=== PATIENT | male | born 1950 | race Caucasian/White ===

== ENCOUNTER 2021-04-14 17:02 | Observation (INO) ==
--- NOTE | 2021-04-14 19:24 | Emergency Department Note ---
Impression & Plan Chest pain ED Provider Note NAME: LILLIAN KENNEY AGE: 70 SEX: M : 1950 ARRIVES VIA: Walk-In INFORMANT: Patient, ED PROVIDER(S): Rogelio Cazares MD Chief Complaint: Chest pain HPI: Patient does present with concern for chest pain describes as central occasionally right-sided with burning and radiation up toward the neck. The patient states it has been exertional initially beginning back in October but h as been increasingly persistent especially over the last week when doing any sort of exercise. Patient denies any nausea or vomiting. The patient tries to continue to exercise and see if it will go away. The patient was recently started on some methylprednisolone and states that he does have a cardiology appointment follow-up on Wednesday. Patient denies any fevers or chills. Patient denies any shortness of breath. No history of DVT or PE. The patient states that he has no current chest pain at this time. Patient denies any prior history of CAD. The patient does state that he has a brother who in his 30s from a heart attack but states that he was overweight and a heavy smoker and not very healthy. ROS: See HPI for pertinent positives and negatives. A total of 10 systems were re viewed and otherwise negative. Past medical history: See below Surgical history: See below Social history: See below Physical Exam: GENERAL: Wearing glasses and a mask. NAD, non-toxic. EYE EXAM: Normal conjunctiva. PERRL, no anisocoria and EOM's grossly intact w/o pain. NECK: Supple, no nuchal rigidity, no adenopathy, non-tender. No signs of meningismus. LUNGS: Clear to auscultation. Normal chest wall mechanics. HEART: NSR, no MRG. ABDOMEN: Abdomen soft, non-tender, normo-active bowel sounds, no masses, no rebound or guarding. BACK: No CVA TTP. SKIN: No rashes and no bruising. UPPER EXTREMITIES: Upper extremities are grossly normal. LOWER EXTREMITIES: Grossly normal, no edema. Negative Homans' sign bilaterally. NEURO EXAM: A&O x3, cranial nerves II-XII grossly intact, normal speech, moves all 4 extremities on command w/o issue. Differential diagnoses: Cardiac ischemia, aortic dissection, pulmonary embolism, pneumothorax, pneumonia, pericarditis, myocarditis, esophageal rupture, GERD, cholecystitis, pancreatitis, musculoskeletal, as well as other pathologies. Course: Patient was seen and evaluated the bedside. Full history physical exam was performed. EKG interpreted by me Sinus bradycardia with first-degree AV block, rate 55, prolonged WI, normal QRS, normal axis, slight downsloping in the lateral leads. Imaging Studies: See below Cardiac monitoring: An order was placed for continuous cardiac monitoring. The monitor shows a rate of 55 with regular rhythm. MDM: Patient was seen due to concern for chest pain. I am concerned about anginal related cardiac chest pain. The patient did have blood work completed along with an EKG. Patient does not meet acute STEMI criteria. Given the patient's history believe the patient would benefit from continued observation and treatment. The patient was given full dose aspirin and nitro. The patient was admitted to the medicine service by Dr. Yuen. Past Med/Surg History Medical History Diverticulosis NSAID induced gastritis SOB (shortness of breath) on exertion Tubular adenoma of colon Surgical History H/O colonoscopy (~2014) S/P arthroscopy of knee Status post tonsillectomy and adenoidectomy Family History Other Leukemia Social History Smoking Status: Never smoker Hx Alcohol Use: Yes marital status: Current Living Situation: Spouse current occupational status: employed Feels Safe at Home: Yes Allergies Allergies Allergy/AdvReac Type Severity Reaction Status Date / Time No Known Allergies Allergy Unverified 04/14/21 20:38 Home Meds Home Medications Medication Instructions Recorded Confirmed methylprednisolone [Medrol (Hermes)] 4 mg PO .DAILY/UD 04/14/21 04/14/21 penicillin V potassium 500 mg PO Q6H 04/14/21 04/14/21 Results & Data (ED) Vital Signs Vital Signs - 24 hr 04/14/21 17:03 04/14/21 19:01 04/14/21 19:52 Temperature 36.4 C L Temperature Source Temporal Artery Scan Pulse Rate 72 55 L Pulse Rate [Left Finger] 60 Pulse Rhythm [Left Finger] Regular Respiratory Rate 20 14 14 Respiratory Effort / Characteristics Non-Labored Non-Labored Respiratory Depth Normal Normal Blood Pressure 172/111 H 162/103 H Blood Pressure [Left Arm] 144/95 H Blood Pressure Mean 131 122 Blood Pressure Mean [Left Arm] 111 Pulse Oximetry 98 98 Oxygen Delivery Method Room Air Room Air Sepsis Recent Fever Within 48 Hours No Sepsis New/Unexplained Change in Mental Status N/A Sepsis Action Taken by Nursing No Action Required 04/14/21 19:55 04/14/21 20:00 04/14/21 20:30 Temperature Temperature Source Pulse Rate 63 52 L Pulse Rate [Left Finger] Pulse Rhythm [Left Finger] Respiratory Rate 12 12 Respiratory Effort / Characteristics Respiratory Depth Blood Pressure 146/90 H 141/71 H Blood Pressure [Left Arm] Blood Pressure Mean 108 94 Blood Pressure Mean [Left Arm] Pulse Oximetry Oxygen Delivery Method Room Air Sepsis Recent Fever Within 48 Hours Sepsis New/Unexplained Change in Mental Status Sepsis Action Taken by Long Term Medications Current Medication List: was personally reviewed by me Laboratory Data Attestation: I reviewed the patient's lab results. Result diagrams: 04/14/21 18:53 04/14/21 18:53 Lab Results 04/14/21 04/14/21 04/14/21 Range/Units 18:53 18:53 18:53 WBC 6.08 (4.8-10.8) K/uL RBC 4.84 (4.7-6.1) M/uL Hgb 16.0 (14.0-18.0) g/dL Hct 46.6 (42-52) % MCV 96.3 (80-100) fL MCH 33.1 (25-34) pg MCHC 34.3 (32-36) g/dL RDW Std Deviation 44.1 (36.4-46.3) fL RDW Coeff of Henrique 12.6 (11.5-14.5) % Plt Count 206 (130-400) K/uL MPV 9.0 (7.4-10.4) fL Immature Gran % (Auto) 0.3 % Neut % (Auto) 62.5 % Lymph % (Auto) 27.3 % [place] % (Auto) 8.9 % Eos % (Auto) 0.7 % Baso % (Auto) 0.3 % Neut # (Auto) 3.80 (1.4-6.5) K/uL Lymph # (Auto) 1.66 (1.2-3.4) K/uL [place] # (Auto) 0.54 (0.11-0.59) K/uL Eos # (Auto) 0.04 (0-0.5) K/uL Baso # (Auto) 0.02 (0-0.2) K/uL Immature Gran # (Auto) 0.02 (0.00-0.02) K/uL APTT 24.9 (21.0-31.0) Seconds PTT Ratio 0.9 Sodium 138 (136-145) mmol/L Potassium 4.8 (3.5-5.1) mmol/L Chloride 104 (98-107) mmol/L Carbon Dioxide 30 (21-32) mmol/L Anion Gap 3.0 (3-11) BUN 19 H (7-18) mg/dl Creatinine 0.92 (0.6-1.4) mg/dl Est Cr Clr Drug Dosing 106.8 ml/min Est GFR ( Amer) 98.7 ml/min Est GFR (Non-Af Amer) 85.2 ml/min BUN/Creatinine Ratio 20.6 H (10-20) Glucose 138 H (70-99) mg/dl Calcium 9.3 (8.5-10.1) mg/dl Total Bilirubin 0.6 (0.2-1) mg/dl AST 12 L (15-37) U/L ALT 15 (12-78) U/L Alkaline Phosphatase 97 (45-117) U/L Troponin I < 0.015 (0-0.045) ng/ml Total Protein 7.4 (6.4-8.2) gm/dl Albumin 3.9 (3.4-5.0) gm/dl Globulin 3.5 (2.5-4.0) gm/dl Albumin/Globulin Ratio 1.1 (0.9-2) Lipase 90 (73-393) U/L COVID-19 Eval Order SARS-CoV-2 (PCR) (Negative) 04/14/21 04/14/21 Range/Units 21:20 21:20 WBC (4.8-10.8) K/uL RBC (4.7-6.1) M/uL Hgb (14.0-18.0) g/dL Hct (42-52) % MCV (80-100) fL MCH (25-34) pg MCHC (32-36) g/dL RDW Std Deviation (36.4-46.3) fL RDW Coeff of Henrique (11.5-14.5) % Plt Count (130-400) K/uL MPV (7.4-10.4) fL Immature Gran % (Auto) % Neut % (Auto) % Lymph % (Auto) % [place] % (Auto) % Eos % (Auto) % Baso % (Auto) % Neut # (Auto) (1.4-6.5) K/uL Lymph # (Auto) (1.2-3.4) K/uL [place] # (Auto) (0.11-0.59) K/uL Eos # (Auto) (0-0.5) K/uL Baso # (Auto) (0-0.2) K/uL Immature Gran # (Auto) (0.00-0.02) K/uL APTT (21.0-31.0) Seconds PTT Ratio Sodium (136-145) mmol/L Potassium (3.5-5.1) mmol/L Chloride (98-107) mmol/L Carbon Dioxide (21-32) mmol/L Anion Gap (3-11) BUN (7-18) mg/dl Creatinine (0.6-1.4) mg/dl Est Cr Clr Drug Dosing ml/min Est GFR ( Amer) ml/min Est GFR (Non-Af Amer) ml/min BUN/Creatinine Ratio (10-20) Glucose (70-99) mg/dl Calcium (8.5-10.1) mg/dl Total Bilirubin (0.2-1) mg/dl AST (15-37) U/L ALT (12-78) U/L Alkaline Phosphatase (45-117) U/L Troponin I (0-0.045) ng/ml Total Protein (6.4-8.2) gm/dl Albumin (3.4-5.0) gm/dl Globulin (2.5-4.0) gm/dl Albumin/Globulin Ratio (0.9-2) Lipase (73-393) U/L COVID-19 Eval Order Covid19 at [facility] SARS-CoV-2 (PCR) NEGATIVE (Negative) Administered Medications Discontinued Medications Acetaminophen (Acetaminophen 325 Mg Tab) 650 mg PO NOW STA Stop: 04/14/21 19:39 Last Admin: 04/14/21 19:56 Dose: Not Given Documented by: [id number] Aspirin (Aspirin Chew 324 Mg) 324 mg PO NOW STA Stop: 04/14/21 19:39 Last Admin: 04/14/21 19:53 Dose: 324 mg Documented by: [id number] Nitroglycerin (Nitroglycerin Sl 0.4 Mg/Tab Tab) 0.4 mg SL NOW STA Stop: 04/14/21 19:39 Last Admin: 04/14/21 19:53 Dose: 0.4 mg Documented by: [id number] Imaging Data Radiologist's Impression: Chest X-Ray 04/14/21 18:50 XR chest 1V portable CLINICAL HISTORY: Chest Pain COMPARISON STUDY: Chest radiograph April 09, 2021. FINDINGS: Lung volumes are normal. Lungs are clear. There is no pneumothorax or pleural effusion. Cardiac size is normal. Mediastinal contours are normal. There is no evidence for pulmonary edema. IMPRESSION: No acute cardiopulmonary findings. ACT 112: Negative or not required by law. Electronically signed by: Gerard Schultz M.D. 04/14/2021 7:59 PM Discharge Plan Visit Data Chief Complaint: Chest Pain Stated Complaint: CHEST PAIN, PRESSURE AND BURNING IN CHEST ED Provider: Rogelio Cazares Discharge Problem: Chest pain Forms Stand Alone Forms: [facility] SocialFlow Prescriptions Prescriptions: No Action methylprednisolone [Medrol (Hermes)] 4 mg tablets,dose pack 4 mg PO .DAILY/UD RF: 0 penicillin V potassium 500 mg tablet 500 mg PO Q6H RF: 0 Discharge Problem: Chest pain Qualifiers: Chest pain type: unspecified Qualified Code(s): R07.9 - Chest pain, unspecified
[2021-04-14 19:27] LABS: Basophils # (auto) 0.02 K/uL (0-0.2); Basophils % (auto) 0.3 %; Eosinophils # (auto) 0.04 K/uL (0-0.5); Eosinophils % (auto) 0.7 %; Hematocrit (blood only) 46.6 % (42-52); Immature Granulocytes # (auto) 0.02 K/uL (0.00-0.02); Immature Granulocytes % (auto) 0.3 %; Lymphocytes # (auto) 1.66 K/uL (1.2-3.4); Lymphocytes % (auto) 27.3 %; Mean Corpuscular Hemoglobin 33.1 pg (25-34); Mean Corpuscular Hgb Conc 34.3 g/dL (32-36); Mean Corpuscular Volume 96.3 fL (80-100); Monocytes # (auto) 0.54 K/uL (0.11-0.59); Monocytes % (auto) 8.9 %; Neutrophils % (auto) 62.5 %; Platelet Count 206 K/uL (130-400); RDW Coefficient of Variation 12.6 % (11.5-14.5); RDW Standard Deviation 44.1 fL (36.4-46.3); Red Blood Count 4.84 M/uL (4.7-6.1); White Blood Count 6.08 K/uL (4.8-10.8)
[2021-04-14] MEDS ORDERED: ACETAMINOPHEN 325 MG TAB PO STA (19:38)
[2021-04-14] MEDS ORDERED: ASPIRIN CHEW 324 MG PO STA (19:38)
[2021-04-14] MEDS ORDERED: NITROGLYCERIN SL 0.4 MG/TAB TAB SL STA (19:38)
[2021-04-14 19:45] LABS: Alanine Aminotransferase 15 U/L (12-78); Albumin Level 3.9 gm/dl (3.4-5.0); Aspartate Aminotransferase 12 U/L (15-37); BUN Creatinine Ratio 20.6 (10-20); Blood Urea Nitrogen 19 mg/dl (7-18); Calcium 9.3 mg/dl (8.5-10.1); Carbon Dioxide 30 mmol/L (21-32); Chloride 104 mmol/L (98-107); Creatinine Clr Calc Pharmacy 106.8 ml/min; Est GFR (African American) 98.7 ml/min; Est GFR (Non-African American) 85.2 ml/min; Glucose 138 mg/dl (70-99); Lipase 90 U/L (73-393); Potassium 4.8 mmol/L (3.5-5.1); Sodium 138 mmol/L (136-145)
[2021-04-14 19:50] LABS: Albumin Globulin Ratio 1.1 (0.9-2); Alkaline Phosphatase 97 U/L (45-117); Bilirubin,Total 0.6 mg/dl (0.2-1); Globulin 3.5 gm/dl (2.5-4.0); Total Protein 7.4 gm/dl (6.4-8.2); Troponin I < 0.015 ng/ml (0-0.045)
--- NOTE | 2021-04-14 20:01 | XRay Report ---
XR chest 1V portable CLINICAL HISTORY: Chest Pain COMPARISON STUDY: Chest radiograph April 09, 2021. FINDINGS: Lung volumes are normal. Lungs are clear. There is no pneumothorax or pleural effusion. Car diac size is normal. Mediastinal contours are normal. There is no evidence for pulmonary edema. IMPRESSION: No acute cardiopulmonary findings. ACT 112: Negative or not required by law. Electronically signed by: Gerard Schultz M.D. 04/14/2021 7:59 PM
--- NOTE | 2021-04-14 21:41 | History & Physical Report ---
Date of Service April 14, 2021 Assessment & Plan (1) Exertional chest pain: Exertional chest pain- The patient will be admitted to telemetry for serial cardiac enzymes, serial EKG's, cardiac rhythm monitoring and a 2-D echocardiogram with Dopplers. Symptoms are suggestive of possible unstable angina Start on aspirin 81 mg every morning Will need a stress echocardiogram prior to discharge Present on Admission?: Yes (2) Degenerative arthritis of cervical spine: Cervical degenerative disc disease/upper extremity dysesthesias- Presently is waiting for return call from orthopedic surgery for follow-up appo intment Present on Admission?: Yes (3) Upper extremity neuropathy: See above Present on Admission?: Yes (4) Dental infection: Dental infection right lower mandible/failure of outpatient treatment- Hold penicillin VK Ceftriaxone 1 g IV this evening Due for last dose of methylprednisolone 4 mg p.o. tonight from tapering course Present on Admission?: Yes (5) Dyslipidemia: Check a fasting lipid panel Present on Admission?: Yes (6) Esophageal reflux: GERD/NSAID induced gastritis- No specific symptoms at this time Will place on aspirin 81mg qam Present on Admission?: Yes History of Present Illness Chief Complaint: The patient presents to the emergency department with complaint of substernal chest discomfort radiating up to his neck that occurs with exertional activities such as riding a bike Primary Care Provider: Yosi Mir MD The patient is a 62-year-old male with a past medical history of cervical degenerative disc disease, allergic rhinitis, GERD, dyslipidemia, horseshoe kidney and osteoarthritis of knee. Initially noted the above symptoms in [facility] when going for bike rides, and was out in the cold temperatures have been 20 to 30 F range. He had gradually gotten to that, but on April 02 had recurrence of symptoms while doing physical activity, and has continued to have recurrence of symptoms with less and less physical activity. He also complains of bilateral upper extremity numbness extending into hands, on left greater than right. He is undergone the beginnings of a work-up in the outpatient setting, and is waiting for a call from orthopedic surgery for an appointment. Allergies Allergy/AdvReac Type Severity Reaction Status Date / Time No Known Allergies Allergy Unverified 04/14/21 20:38 Home Medications Medication Instructions Recorded Confirmed Type methylprednisolone [Medrol (Hermes)] 4 mg PO .DAILY/UD 04/14/21 04/14/21 History penicillin V potassium 500 mg PO Q6H 04/14/21 04/14/21 History Past Med/Surg History Medical History Diverticulosis NSAID induced gastritis SOB (shortness of breath) on exertion Tubular adenoma of colon Surgical History H/O colonoscopy (~2014) S/P arthroscopy of knee Status post tonsillectomy and adenoidectomy Family History Other Leukemia Social History Smoking Status: Never smoker Hx Alcohol Use: Yes marital status: Current Living Situation: Spouse current occupational status: employed Feels Safe at Home: Yes Review of Systems Review of Systems: The patient denies palpitations, shortness of breath, dyspnea on exertion, cough, lower extremity swelling, sore throat, fevers, chills, sweats, weight change, fatigue, nausea, vomiting, diarrhea , constipation, abdominal pain, pelvic pain, blood in urine or stool, dysuria, urinary frequency or urgency, lightheadedness, dizziness, headache, memory loss, loss of consciousness, rash, abnormal bruising or bleeding, imbalance, focal or generalized weakness, numbness or tingling in legs, generalized arthralgias or myalgias, back pain, or night sweats. The review of systems is otherwise negative other than for that already noted above, and at least 10 systems have been reviewed. Physical Exam Physical Exam: The patient is awake, alert and oriented 3, well developed and well nourished, normocephalic and atraumatic, lying in bed and in no acute distress. HEENT--PERRL, EOMI, mucous membranes and oropharynx normal Neck--supple. No JVD. No bruits. Thyroid normal, trachea midline, no adenopathy. Heart--normal S1 and S2. No murmurs, rubs or gallops. Lungs--clear bilaterally, no respiratory distress, no accessory muscle use. Abdomen--normal bowel sounds and soft. Nontender. Nondistended, no hernias or masses, no organomegaly. Extremities--no cyanosis or clubbing. No edema. Dermatologic--normal skin turgor, normal color, no abnormal lymph nodes, no rash. Neurologic--cranial nerves II through XII grossly intact. Rheumatologic--normal range of motion. Psychiatric--normal affect. Results & Data Results & Data ([facility]) Vital Signs (Past 12 Hours) Vital Signs Temp Pulse Pulse Resp BP BP Pulse Ox 04/14/21 20:30 52 L 12 141/71 H 04/14/21 20:00 63 12 146/90 H 04/14/21 19:52 55 L 14 162/103 H 04/14/21 19:01 60 14 144/95 H 98 04/14/21 17:03 97.5 F L 72 20 172/111 H 98 Laboratory Results Laboratory Results WBC 6.08 K/uL (4.8-10.8) 04/14/21 18:53 RBC 4.84 M/uL (4.7-6.1) 04/14/21 18:53 Hgb 16.0 g/dL (14.0-18.0) 04/14/21 18:53 Hct 46.6 % (42-52) 04/14/21 18:53 MCV 96.3 fL (80-100) 04/14/21 18:53 MCH 33.1 pg (25-34) 04/14/21 18:53 MCHC 34.3 g/dL (32-36) 04/14/21 18:53 RDW Std Deviation 44.1 fL (36.4-46.3) 04/14/21 18:53 RDW Coeff of Henrique 12.6 % (11.5-14.5) 04/14/21 18:53 Plt Count 206 K/uL (130-400) 04/14/21 18:53 MPV 9.0 fL (7.4-10.4) 04/14/21 18:53 Immature Gran % (Auto) 0.3 % 04/14/21 18:53 Neut % (Auto) 62.5 % 04/14/21 18:53 Lymph % (Auto) 27.3 % 04/14/21 18:53 [place] % (Auto) 8.9 % 04/14/21 18:53 Eos % (Auto) 0.7 % 04/14/21 18:53 Baso % (Auto) 0.3 % 04/14/21 18:53 Neut # (Auto) 3.80 K/uL (1.4-6.5) 04/14/21 18:53 Lymph # (Auto) 1.66 K/uL (1.2-3.4) 04/14/21 18:53 [place] # (Auto) 0.54 K/uL (0.11-0.59) 04/14/21 18:53 Eos # (Auto) 0.04 K/uL (0-0.5) 04/14/21 18:53 Baso # (Auto) 0.02 K/uL (0-0.2) 04/14/21 18:53 Immature Gran # (Auto) 0.02 K/uL (0.00-0.02) 04/14/21 18:53 Sodium 138 mmol/L (136-145) 04/14/21 18:53 Potassium 4.8 mmol/L (3.5-5.1) 04/14/21 18:53 Chloride 104 mmol/L (98-107) 04/14/21 18:53 Carbon Dioxide 30 mmol/L (21-32) 04/14/21 18:53 Anion Gap 3.0 (3-11) 04/14/21 18:53 BUN 19 mg/dl (7-18) H 04/14/21 18:53 Creatinine 0.92 mg/dl (0.6-1.4) 04/14/21 18:53 Est Cr Clr Drug Dosing 106.8 ml/min 04/14/21 18:53 Est GFR ( Amer) 98.7 ml/min 04/14/21 18:53 Est GFR (Non-Af Amer) 85.2 ml/min 04/14/21 18:53 BUN/Creatinine Ratio 20.6 (10-20) H 04/14/21 18:53 Glucose 138 mg/dl (70-99) H 04/14/21 18:53 Calcium 9.3 mg/dl (8.5-10.1) 04/14/21 18:53 Total Bilirubin 0.6 mg/dl (0.2-1) 04/14/21 18:53 AST 12 U/L (15-37) L 04/14/21 18:53 ALT 15 U/L (12-78) 04/14/21 18:53 Alkaline Phosphatase 97 U/L (45-117) 04/14/21 18:53 Troponin I < 0.015 ng/ml (0-0.045) 04/14/21 18:53 Total Protein 7.4 gm/dl (6.4-8.2) 04/14/21 18:53 Albumin 3.9 gm/dl (3.4-5.0) 04/14/21 18:53 Globulin 3.5 gm/dl (2.5-4.0) 04/14/21 18:53 Albumin/Globulin Ratio 1.1 (0.9-2) 04/14/21 18:53 Lipase 90 U/L (73-393) 04/14/21 18:53 COVID-19 Eval Order Covid19 at [facility] 04/14/21 21:20 Impressions Chest X-Ray 04/14/21 18:50 XR chest 1V portable CLINICAL HISTORY: Chest Pain COMPARISON STUDY: Chest radiograph April 09, 2021. FINDINGS: Lung volumes are normal. Lungs are clear. There is no pneumothorax or pleural effusion. Cardiac size is normal. Mediastinal contours are normal. There is no evidence for pulmonary edema. IMPRESSION: No acute cardiopulmonary findings. ACT 112: Negative or not required by law. Electronically signed by: Gerard Schultz M.D. 04/14/2021 7:59 PM Code Status & VTE Plan Code Status Full code VTE Prophylaxis Plan VTE Prophylaxis will be ordered: Yes PG Care Time/CCT Total # of Minutes Spent Total Time Spent with Patient: Total time spent is greater than 50% in coordination of care (as documented) at patient's floor/unit and/or counseling patient: Coding Level of Care Code INT OBSERVATION CARE 70M LVL 3 Diagnoses Exertional chest pain R07.9 Degenerative arthritis of cervical spine M47.812 Upper extremity neuropathy G56.90 Dental infection K04.7 Dyslipidemia E78.5 Esophageal reflux K21.9
[2021-04-14] MEDS ORDERED: methylPREDNISolone 4 MG TAB PO ONE (21:42)
[2021-04-14 22:50] LABS: Partial Thromboplastin Ratio 0.9; Partial Thromboplastin Time 24.9 Seconds (21.0-31.0)
[2021-04-14] MEDS: cefTRIAXone SODIUM 2,000 MG in DEXTROSE 5% 50 ML IV SCH (23:32)
[2021-04-15] MEDS ORDERED: ACETAMINOPHEN 325 MG TAB PO PRN (00:47)
[2021-04-15] MEDS ORDERED: ONDANSETRON INJ 2 MG/ML 2 ML VIAL IV PRN (00:47)
[2021-04-15 08:08] LABS: Basophils # (auto) 0.02 K/uL (0-0.2); Basophils % (auto) 0.4 %; Eosinophils # (auto) 0.07 K/uL (0-0.5); Eosinophils % (auto) 1.5 %; Hematocrit (blood only) 46.7 % (42-52); Immature Granulocytes # (auto) 0.01 K/uL (0.00-0.02); Immature Granulocytes % (auto) 0.2 %; Lymphocytes # (auto) 1.68 K/uL (1.2-3.4); Lymphocytes % (auto) 35.1 %; Mean Corpuscular Hemoglobin 32.7 pg (25-34); Mean Corpuscular Hgb Conc 34.3 g/dL (32-36); Mean Corpuscular Volume 95.3 fL (80-100); Mean Platelet Volume 8.7 fL (7.4-10.4); Monocytes # (auto) 0.57 K/uL (0.11-0.59); Monocytes % (auto) 11.9 %; Neutrophils # (auto) 2.43 K/uL (1.4-6.5); Neutrophils % (auto) 50.9 %; Platelet Count 195 K/uL (130-400); RDW Coefficient of Variation 12.6 % (11.5-14.5); RDW Standard Deviation 43.8 fL (36.4-46.3); White Blood Count 4.78 K/uL (4.8-10.8)
[2021-04-15 08:18] LABS: Partial Thromboplastin Time 25.9 Seconds (21.0-31.0); Prothrombin Time 10.3 Seconds (9.0-12.0)
--- NOTE | 2021-04-15 08:29 | Hospitalist Progress Note ---
Date of Service April 15, 2021 Assessment & Plan (1) Exertional chest pain: Exertional chest pain- Pt had negative troponin x3, had abnormal stress test and taken to [employer] [employer] Successful PCI of proximal first diagonal with single drug-eluting stent (3.0 x 18 mm Neno). Recommendations: Loaded with clopidogrel 600 mg in [employer] Continue dual-antiplatelet therapy for at least 1 year cardiology is chosen Brilinta Continue statin, and ASCVD risk factor modification Consult cardiac Rehab (2) Degenerative arthritis of cervical spine: Cervical degenerative disc disease/upper extremity dysesthesias- Presently is waiting for return call from orthopedic surgery for follow-up appointment (3) Upper extremity neuropathy: See above (4) Dental infection: Dental infection right lower mandible/failure of outpatient treatment- Hold penicillin VK Ceftriaxone 1 g IV this evening Due for last dose of methylprednisolone 4 mg p.o. tonight from tapering course (5) Dyslipidemia: Check a fasting lipid panel (6) Esophageal reflux: GERD/NSAID induced gastritis- No specific symptoms at this time Will place on aspirin 81mg qam Admission and Anticipated Discharge Date Admission Date: April 14, 2021 Subjective pt was seen post cath, no further chest pain, still some dental pain Review of Systems Review of Systems: Mild distress and fatigue no headache, no visual changes no speech or swallowing issues This pain since resolved no shortness of breath, cough or wheezes no abdominal pain, nausea or vomiting, diarrhea or constipation no dysuria, hematuria or frequency no focal joint pain or swelling no back pain, CVA tenderness or radicular pain no bruising, bleeding or rashes no focal signs of weakness or numbness or altered sensation no complaints of anxiety or depression.. Physical Exam Physical Exam: The patient appeared well nourished and normally developed. Vital signs as documented. Head exam is normocephalic atraumatic Neck is without JVD, thyromegaly, or carotid bruits. Lungs are clear to auscultation, no focal loss of breath sounds Cardiac exam, Rhythm is regular.. No murmurs, rubs or gallops. Abdominal exam reveals normal bowel sounds, soft non tender, no masses Right wrist the bandage in place Neurologic exam is alert and oriented, no focal loss of strength or sensation Skin is without bruises or rashes Psychologically is without concerns for anxiety or depression Results & Data Results & Data ([facility]) Vital Signs (Past 12 Hours) Vital Signs Temp Pulse Pulse Resp BP BP Pulse Ox 04/15/21 07:23 97.7 F 63 19 133/76 96 04/15/21 03:47 97.7 F 53 L 18 151/89 H 97 04/15/21 00:58 61 04/15/21 00:49 98.1 F 60 14 155/78 H 99 04/15/21 00:47 04/14/21 23:30 65 22 151/92 H 04/14/21 23:00 56 L 18 137/85 04/14/21 20:30 52 L 12 141/71 H Pulse Ox 04/15/21 07:23 04/15/21 03:47 04/15/21 00:58 04/15/21 00:49 04/15/21 00:47 99 04/14/21 23:30 04/14/21 23:00 04/14/21 20:30 PG Care Time/CCT Total # of Minutes Spent Total Time Spent with Patient: Total time spent is greater than 50% in coordination of care (as documented) at patient's floor/unit and/or counseling patient: Coding Level of Care Code 80156 Subseq Hosp Care Lvl 3 Diagnoses Exertional chest pain R07.9 Degenerative arthritis of cervical spine M47.812 Upper extremity neuropathy G56.90 Dental infection K04.7 Dyslipidemia E78.5 Esophageal reflux K21.9
[2021-04-15 08:42] LABS: Albumin Globulin Ratio 1.2 (0.9-2); Albumin Level 3.8 gm/dl (3.4-5.0); BUN Creatinine Ratio 19.7 (10-20); Bilirubin,Total 0.7 mg/dl (0.2-1); Calcium 8.8 mg/dl (8.5-10.1); Creatinine Clr Calc Pharmacy 129.3 ml/min; Est GFR (African American) 108.7 ml/min; Est GFR (Non-African American) 93.7 ml/min; Globulin 3.3 gm/dl (2.5-4.0); Magnesium 2.4 mg/dl (1.8-2.4); Potassium 3.9 mmol/L (3.5-5.1); Total Protein 7.1 gm/dl (6.4-8.2)
[2021-04-15] MEDS: ASPIRIN 81 MG ECTAB PO SCH (09:06)
--- NOTE | 2021-04-15 12:35 | XCELERA ---
[id number]
--- NOTE | 2021-04-15 13:45 | Cardiology Consultation ---
Date of Consultation April 15, 2021 Assessment & Plan (1) Exertional chest pain: Patient symptoms are consistent with exertional angina. His symptoms seem to have started approximately 2 weeks ago. Based on the relatively recent development of symptoms and persistent nature this could be considered unstable angina. No rest symptoms however. His echocardiogram was notably abnormal and suggestive of an LAD lesion. I did discuss the options for evaluation and management with the patient. This included medical management or an invasive evaluation. I did recommend an invasive evaluation based on the progressive nature of his symptoms. We did discuss the risks of an invasive evaluation and he was agreeable to proceeding. (2) Mitral regurgitation: Mild to moderate on echocardiogram. This can be monitored over time. (3) Aortic root dilation: 4.4 cm on his echocardiogram. He is a large individual and this indexed to his size may simply be borderline. This can be imaged more definitively at a later time. History of Present Illness Reason for Consultation: Exertional chest pain Requesting Physician: Perico Attending Physician: Filiberto River MD History of Present Illness The patient is a 70-year-old gentleman with no known history of cardiac disease who has been experiencing symptoms of exertional chest discomfort. Patient states that in general he is a very active individual who exercises vigorously on a regular basis. Around April 03 he began to notice some symptoms associated with activity. This was described as a "burning" sensation in the precordium which generally became worse with activity and resolved with rest. On one occasion he was able to continue activity with some improvement in his symptoms. Based on the persistent nature of his symptoms and inability to exercise he presented to the emergency room for an evaluation. The patient did not describe symptoms at rest. As noted previously he is an otherwise active individual who is not generally bothered by dizziness, lightheadedness, exertional dyspnea or syncope. Allergies Allergy/AdvReac Type Severity Reaction Status Date / Time No Known Allergies Allergy Unverified 04/14/21 20:38 Home Medications Medication Instructions Recorded Confirmed Type methylprednisolone [Medrol (Hermes)] 4 mg PO .DAILY/UD 04/14/21 04/14/21 History penicillin V potassium 500 mg PO Q6H 04/14/21 04/14/21 History Patient History Medical History Diverticulosis NSAID induced gastritis SOB (shortness of breath) on exertion Tubular adenoma of colon Surgical History H/O colonoscopy (~2014) S/P arthroscopy of knee Status post tonsillectomy and adenoidectomy Family History Other Leukemia Social History Smoking Status: Never smoker Hx Alcohol Use: Yes Alcohol type: beer and wine Hx Substance Use: No Preferred Language: Telugu Communication Ability: Effective 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 Symptoms generally resolved with discontinuation of activity. Physical Exam Physical Exam: The patient is alert and oriented. Mood and affect appeared normal. He answered all questions appropriately. HEENT: Pupils are equal and reactive to light and accommodation. Extraocular movements are intact. The sclerae are anicteric. Neuro: Cranial nerves intact Neck: Patient's neck is supple. He has palpable carotid pulses bilaterally without bruits on auscultation. There is no evidence of jugular venous distention. The thyroid is not enlarged. Lungs: Clear to auscultation bilaterally. He has good air movement without use of accessory muscles. No rales wheezes or rhonchi. Cardiac: Heart demonstrates a regular rate and rhythm. Normal S1 and S2. No murmurs on examination. Pulses: The patient has palpable radial pulses bilaterally that are equal in intensity Extremities: There was no evidence of hypoperfusion. There is no cyanosis or clubbing. There is no edema. Skin: I did not appreciate any rashes on examination today. Results & Data ([facility]) Vital Signs (Past 12 Hours) Vital Signs Temp Pulse Resp BP Pulse Ox 04/15/21 11:29 36.9 C 68 20 134/83 98 04/15/21 07:23 36.5 C 63 19 133/76 96 04/15/21 03:47 36.5 C 53 L 18 151/89 H 97 Laboratory Results Abnormal Lab Results 04/14/21 04/14/21 04/14/21 18:53 18:53 18:53 WBC 6.08 RBC 4.84 Hgb 16.0 Hct 46.6 MCV 96.3 MCH 33.1 MCHC 34.3 RDW Std Deviation 44.1 RDW Coeff of Henrique 12.6 Plt Count 206 MPV 9.0 Immature Gran % (Auto) 0.3 Neut % (Auto) 62.5 Lymph % (Auto) 27.3 Rowan % (Auto) 8.9 Eos % (Auto) 0.7 Baso % (Auto) 0.3 Neut # (Auto) 3.80 Lymph # (Auto) 1.66 Rowan # (Auto) 0.54 Eos # (Auto) 0.04 Baso # (Auto) 0.02 Immature Gran # (Auto) 0.02 PT INR APTT 24.9 PTT Ratio 0.9 Sodium 138 Potassium 4.8 Chloride 104 Carbon Dioxide 30 Anion Gap 3.0 BUN 19 H Creatinine 0.92 Est Cr Clr Drug Dosing 106.8 Est GFR ( Amer) 98.7 Est GFR (Non-Af Amer) 85.2 BUN/Creatinine Ratio 20.6 H Glucose 138 H Calcium 9.3 Magnesium Total Bilirubin 0.6 AST 12 L ALT 15 Alkaline Phosphatase 97 Troponin I < 0.015 Total Protein 7.4 Albumin 3.9 Globulin 3.5 Albumin/Globulin Ratio 1.1 Lipase 90 COVID-19 Eval Order SARS-CoV-2 (PCR) Hepatitis C Ab Screen 04/14/21 04/14/21 04/15/21 21:20 21:20 01:09 WBC RBC Hgb Hct MCV MCH MCHC RDW Std Deviation RDW Coeff of Henrique Plt Count MPV Immature Gran % (Auto) Neut % (Auto) Lymph % (Auto) Rowan % (Auto) Eos % (Auto) Baso % (Auto) Neut # (Auto) Lymph # (Auto) Rowan # (Auto) Eos # (Auto) Baso # (Auto) Immature Gran # (Auto) PT INR APTT PTT Ratio Sodium Potassium Chloride Carbon Dioxide Anion Gap BUN Creatinine Est Cr Clr Drug Dosing Est GFR ( Amer) Est GFR (Non-Af Amer) BUN/Creatinine Ratio Glucose Calcium Magnesium Total Bilirubin AST ALT Alkaline Phosphatase Troponin I 0.016 Total Protein Albumin Globulin Albumin/Globulin Ratio Lipase COVID-19 Eval Order Covid19 at [facility] SARS-CoV-2 (PCR) NEGATIVE Hepatitis C Ab Screen 04/15/21 04/15/21 04/15/21 07:54 07:54 07:54 WBC 4.78 L RBC 4.90 Hgb 16.0 Hct 46.7 MCV 95.3 MCH 32.7 MCHC 34.3 RDW Std Deviation 43.8 RDW Coeff of Henrique 12.6 Plt Count 195 MPV 8.7 Immature Gran % (Auto) 0.2 Neut % (Auto) 50.9 Lymph % (Auto) 35.1 Rowan % (Auto) 11.9 Eos % (Auto) 1.5 Baso % (Auto) 0.4 Neut # (Auto) 2.43 Lymph # (Auto) 1.68 Rowan # (Auto) 0.57 Eos # (Auto) 0.07 Baso # (Auto) 0.02 Immature Gran # (Auto) 0.01 PT 10.3 INR 1.0 APTT 25.9 PTT Ratio 1.0 Sodium 138 Potassium 3.9 D Chloride 106 Carbon Dioxide 31 Anion Gap 1.0 L BUN 15 Creatinine 0.76 Est Cr Clr Drug Dosing 129.3 Est GFR ( Amer) 108.7 Est GFR (Non-Af Amer) 93.7 BUN/Creatinine Ratio 19.7 Glucose 88 Calcium 8.8 Magnesium 2.4 Total Bilirubin 0.7 AST 11 L ALT 12 Alkaline Phosphatase 84 Troponin I Total Protein 7.1 Albumin 3.8 Globulin 3.3 Albumin/Globulin Ratio 1.2 Lipase COVID-19 Eval Order SARS-CoV-2 (PCR) Hepatitis C Ab Screen 04/15/21 04/15/21 07:54 07:54 WBC RBC Hgb Hct MCV MCH MCHC RDW Std Deviation RDW Coeff of Henrique Plt Count MPV Immature Gran % (Auto) Neut % (Auto) Lymph % (Auto) Rowan % (Auto) Eos % (Auto) Baso % (Auto) Neut # (Auto) Lymph # (Auto) Rowan # (Auto) Eos # (Auto) Baso # (Auto) Immature Gran # (Auto) PT INR APTT PTT Ratio Sodium Potassium Chloride Carbon Dioxide Anion Gap BUN Creatinine Est Cr Clr Drug Dosing Est GFR ( Amer) Est GFR (Non-Af Amer) BUN/Creatinine Ratio Glucose Calcium Magnesium Total Bilirubin AST ALT Alkaline Phosphatase Troponin I < 0.015 Total Protein Albumin Globulin Albumin/Globulin Ratio Lipase COVID-19 Eval Order SARS-CoV-2 (PCR) Hepatitis C Ab Screen Neg Diagnostic Findings Stress echocardiogram performed today revealed preserved LV systolic function with mild to moderate mitral regurgitation, mild left atrial dilation, mild aortic root dilation. There was evidence of inducible ischemia based on EKG findings, symptoms and wall motion abnormalities at peak exertion. PG Care Time/CCT Total # of Minutes Spent Total Time Spent with Patient: Total time spent is greater than 50% in coordination of care (as documented) at patient's floor/unit and/or counseling patient: Coding Level of Care Code 73892 Initial Inpt Care Lvl 3 Diagnoses Exertional chest pain R07.9 Mitral regurgitation I34.0 Aortic root dilation I77.810
--- NOTE | 2021-04-15 13:47 | Pre Anesthesia Assessment ---
Date of Service April 15, 2021 Pre Sedation Assessment Vital Signs Temp Pulse Pulse Resp BP BP Pulse Ox 04/15/21 11:29 36.9 C 68 20 134/83 98 04/15/21 07:23 36.5 C 63 19 133/76 96 04/15/21 03:47 36.5 C 53 L 18 151/89 H 97 04/15/21 00:58 61 04/15/21 00:49 36.7 C 60 14 155/78 H 99 04/15/21 00:47 04/14/21 23:30 65 22 151/92 H 04/14/21 23:00 56 L 18 137/85 04/14/21 20:30 52 L 12 141/71 H 04/14/21 20:00 63 12 146/90 H 04/14/21 19:52 55 L 14 162/103 H 04/14/21 19:01 60 14 144/95 H 98 04/14/21 17:03 36.4 C L 72 20 172/111 H 98 Pulse Ox 04/15/21 11:29 04/15/21 07:23 04/15/21 03:47 04/15/21 00:58 04/15/21 00:49 04/15/21 00:47 99 04/14/21 23:30 04/14/21 23:00 04/14/21 20:30 04/14/21 20:00 04/14/21 19:52 04/14/21 19:01 04/14/21 17:03 Cardiovascular + regular rate and + regular rhythm Respiratory + respiratory effort normal Pre-Sedation Airway Assessment Smoking Status: Never smoker Hx Sleep Apnea: No Hx Difficult Intubation: No Short, Thick Neck: No Thyromental Distance: > or= 3.5 Finger Breadths Oral Cavity: + WNL Mallampati Class: III ASA: ASA2 Procedure Planning Contraindications for Sedation: none Current Medications Reviewed: Yes Notes The planned sedation has been discussed with the patient. Informed Consent was obtained. I have identified the patient, determined the appropriateness of sedation and have assessed the patient immediately prior to the procedure. All medicine(s) and interventions are by my order.
[2021-04-15] MEDS ORDERED: NITROGLYCERIN/D5W 100MCG/ML 20ML SYR ONE (14:14)
[2021-04-15] MEDS ORDERED: HEPARIN (PORCINE) 1000 UNIT/ML 10 ML (CATH LAB USE ONLY) ONE ×2 (14:14→15:06)
[2021-04-15] MEDS ORDERED: MIDAZOLAM HCL 1 MG/ML 2ML VIAL ONE ×2 (14:14→14:45)
[2021-04-15] MEDS ORDERED: niCARdipine HCL INJ 2.5 MG/ML 10 ML AMP ONE (14:14)
[2021-04-15] MEDS ORDERED: fentaNYL citrate 100 MCG/2 ML VIAL ONE (14:14)
--- NOTE | 2021-04-15 14:58 | Cardiac Catheterization ---
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: Senior Functional Analyst Cardiac Status Clinical evaluation leading to the procedure CAD Presenation: Positive Stress Test Diagnostic Physicians Name: Lobo Deutsch MD Closure Device Recommendations: PCI without planned CABG Cardiac Cath Procedure Full Procedure Date April 15, 2021 Pre-Procedure Diagnosis Pre-Procedure Diagnosis: Positive Stress Test AUC Score AUC Score: 8 Post-Procedure Diagnosis Post-Procedure Diagnosis: Severe CAD and Normal Intracardiac Pressures Procedure(s) Performed Procedure(s) Performed: Coronary Angiography and Left Heart Cath Saw Offbearer Lobo Deutsch MD Fraud Analyst(s) none Estimated Blood Loss Estimated Blood Loss: 11cc Medication(s) Medication(s): Fentanyl, Heparin, Lidocaine 1%, Nicardipine, Nitroglycerin and Versed Summary of Findings Procedure performed: Left heart catheterization, selective coronary angiography Staff hand patcher: Lobo Deutsch MD Indication: The patient is a 70-year-old gentleman with recent onset exertional angina. He did undergo stress echocardiography today which was abnormal. Procedure in detail: The patient was informed of the risk benefits and alternatives to the intended procedure. He understood and wished to proceed. He was taken to the cardiac catheterization suite in a fasting state. Conscious sedation was administered per protocol and the patient was monitored electrocardiographically throughout today's procedure. The right radial area was prepped and draped in usual sterile fashion. This area was anesthetized using subcutaneous ministration of lidocaine solution. Right radial artery was subsequently accessed using Seldinger technique and a arterial sheath was placed at the site over guidewire. This sheath was used to facilitate passage of the cardiac catheters for selective coronary angiography and left heart catheterization. Images were obtained in multiple orthogonal views prior to removal of the catheters. The patient tolerated the procedure well. There were no immediate complications. Based on the results of angiography the patient was referred for immediate percutaneous intervention. Equipment used: 6 Welsh JR4 5 Welsh JL 3.5 Findings: Coronary angiography Left main: The left main was a large vessel which bifurcated normally into the left anterior descending and left circumflex arteries. Some very mild tapering in its distal portion but no obstructive disease. Left anterior descending: This was a large transapical vessel which produced a very early large first diagonal branch. First diagonal branch had an acute lesion in its proximal portion which compromised the lumen approximately 70%. There was 50% lesion at the bifurcation of the first diagonal. In the mid vessel there was a 60 to 70% lesion prior to takeoff of D2. The remainder the vessel had luminal irregularities Left circumflex: Left circumflex was a small diminutive vessel. There was approximately 99% stenosis of been OM branch which was quite small. Right coronary artery: The right coronary artery was a large vessel. It had luminal irregularities in its proximal portion. The PDA had a 70% lesion in its midportion and another lesion more distally. There was a large branching posterolateral system without obstructive disease. Impression: Acute coronary syndrome involving the first diagonal branch Moderate disease involving the LAD and obstructive disease involving the mid PDA Normal intracardiac pressures No evidence of aortic stenosis Hemodynamics Rest Ao:: 118/71 mmHg Final Ao: 119/81 mmHg LV: 132/0 mmHg Left ventricular end-diastolic pressure was 6mmHg Recommendations Recommendations: PCI without planned CABG Radiation Exposure (mGy) 725 Contrast (mls) 70 I attest to the content of the Intraoperative Record and any orders documented therein. Any exceptions are noted below. [facility] Card Cath Procedure Codes Cardiac Catheterization Procedure 1: Cardiovascular Cath Procedures: 44216 Coronaries and LHC (+/-LV) Moderate Sedation Procedure 1: Sedation/Anesthesia: 91175 Mod Sedation by the same physician;Init15 Min Child Age 5 & Up Procedure 2: Sedation/Anesthesia: 81080 Mod Sedation by the same physician; Ea [id number] Minutes PG Care Time/CCT Total # of Minutes Spent Total Time Spent with Patient: Total time spent is greater than 50% in coordination of care (as documented) at patient's floor/unit and/or counseling patient:
[2021-04-15] MEDS ORDERED: TICAGRELOR 90 MG TAB PO ONE (15:31)
--- NOTE | 2021-04-15 16:07 | Post Anesthesia Assessment ---
Date of Service April 15, 2021 Post Sedation Assessment Vital Signs Temp Pulse Pulse Resp BP BP Pulse Ox 04/15/21 15:55 56 L 17 140/90 98 04/15/21 15:40 55 L 17 133/84 98 04/15/21 13:47 56 L 17 150/97 H 98 04/15/21 11:29 98.4 F 68 20 134/83 98 04/15/21 07:23 97.7 F 63 19 133/76 96 04/15/21 03:47 97.7 F 53 L 18 151/89 H 97 04/15/21 00:58 61 04/15/21 00:49 98.1 F 60 14 155/78 H 99 04/15/21 00:47 04/14/21 23:30 65 22 151/92 H 04/14/21 23:00 56 L 18 137/85 04/14/21 20:30 52 L 12 141/71 H 04/14/21 20:00 63 12 146/90 H 04/14/21 19:52 55 L 14 162/103 H 04/14/21 19:01 60 14 144/95 H 98 04/14/21 17:03 97.5 F L 72 20 172/111 H 98 Pulse Ox 04/15/21 15:55 04/15/21 15:40 04/15/21 13:47 04/15/21 11:29 04/15/21 07:23 04/15/21 03:47 04/15/21 00:58 04/15/21 00:49 04/15/21 00:47 99 04/14/21 23:30 04/14/21 23:00 04/14/21 20:30 04/14/21 20:00 04/14/21 19:52 04/14/21 19:01 04/14/21 17:03 Recovery Score Activity: Moves 4 extremities Respiration: Deep Breath/Cough Circulation: +/-20% PreAnes Value Consciousness: Fully Awake Oxygen Saturation: O2 needed for >90% Discharge Sedation Level of Care: Fast Track Phase II Post Sedation Plan On clinical assessment, the patient appears to have tolerated the sedation without complications. Patient is recovering as anticipated. Patient will continue to be monitored by nursing and may be discharged when sedation discharge criteria are met per below protocol. Upon Completions of procedure up to 15 minutes continue every 5 minute vital signs and the P.A.R. score; then discharge to a Phase I or Fast Track to Phase II per the following guidelines: * Discharge Patient to appropriate Phase II area if PAR is 8 or greater or return to pre- procedure baseline. The post - procedure orders will be as directed. * If PAR score is less than 8 or not return to pre-procedure baseline then patient will follow Phase I monitoring till PAR is reached for Phase II. The Phase I may be done in procedure room or may call to secure a Phase I area. * If naloxone or flumazenil are used for reversal, hold in Phase I for continued monitoring from when last reversal dose was given for a minimum of 60 minutes or longer pending the nurse and/or physician discretion of patient condition before discharge to Phase II. Please call the Sedation Physician to re-evaluate and complete post-note for discharge to Phase II area. Do NOT discharge from procedure sedation or Phase 1 until post- sedation evaluation note is complete by procedure /sedation MD Sedation Discharge Instructions to be given to the patient at discharge to home.
--- NOTE | 2021-04-15 16:18 | Cardiac Catheterization ---
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 Cardiac Status Clinical evaluation leading to the procedure CAD Presenation: Positive Stress Test and Unstable angina Anginal Classification: CCS IV Heart Failure: No Cardiogenic Shock within 24 Hours: No Cardiac Arrest within 24 Hours: No Imaging Studies Past 6 Months: Yes Stress Studies Past 6 Months: Yes Stress Echocardiogram: Yes - Positive and Risk/Extent of Ischemia (Intermediate) Diagnostic Physicians Name: Lobo Harkins MD Closure Device Percutaneous Entry Location: Radial Closure Device: Radial Band Recommendations: PCI without planned CABG PCI Indication: + Stress Test and Unstable Angina Lesion Segment Name: 1st diagonal Culprit Artery: Yes Stenosis Prior to Rx (%): 90 Chronic Total Occlusion: No IVUS: No FFR: No Pre-Procedure BALJEET Flow: 3 Previously Treated Lesion: No Lesion Complexity: Non-High/Non-C Lesion Length (mm): 12 Thrombus Present: Yes Bifurcation Lesion: No Guidewire Across Lesion: Stenosis Post-Procedure (%): 0 Post-Procedure BALJEET Flow: 3 Devices(s) Deployed: Yes Yes Intraprocedure Events Significant Disection: No Perforation: No Cardiac Cath Procedure Full Procedure Date April 15, 2021 Pre-Procedure Diagnosis Pre-Procedure Diagnosis: Positive Stress Test AUC Score AUC Score: 8 Post-Procedure Diagnosis Post-Procedure Diagnosis: Severe CAD and Successful PCI Procedure(s) Performed Procedure(s) Performed: Coronary Angiography, Left Heart Cath and Drug Eluting Stent Executive Chairman Lobo Harkins MD 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 Deutsch. Briefly, patient found to have multi-vessel disease including a 90% acute stenosis involving large proximal 1st diagonal. Decision to proceed with PCI. -- PCI -- Antithrombotic therapy: Heparin, ticagrelor Procedure: Left main cannulated with EBU 3.5 guide Field Hand 50 wire passed across lesion into distal vessel Proximal D1 lesion predilated with 2.5 compliant balloon Dilated lesion stented with 3.0 x 18 mm Mesa Stent post-dilated with 3.0 noncompliant balloon IC vasodilators administered for spasm Post procedure BALJEET 3 flow, stent well expanded with minimal residual stenosis and no apparent cardiac complications. Arterial Closure: TR band Summary: 1. Successful PCI of proximal first diagonal with single drug-eluting stent (3.0 x 18 mm Mesa). Recommendations: To PCU for continued monitoring Loaded with clopidogrel 600 mg in Engine Lathe Set Up Operator Continue dual-antiplatelet therapy for at least 1 year Continue statin, and ASCVD risk factor modification Consult cardiac Rehab Hemodynamics Rest Ao:: 151/76/105 Final Ao: 130/77/100 LV: -- Recommendations Recommendations: PCI without planned CABG Specimens Specimens: None Radiation Exposure (mGy) 1527 Contrast (mls) 110 Fluids (cc crystalloids) Fluids (cc crystalloids): 123 Drains Drains: None Anesthesia Moderate [id number] Procedural Complication(s) None Disposition PCU I attest to the content of the Intraoperative Record and any orders documented therein. Any exceptions are noted below. [facility] Card Cath Procedure Codes Moderate Sedation Procedure 1: Sedation/Anesthesia: 99032 Mod Sedation by the same physician; Ea [id number] Minutes Stenting Procedure 1: Cardiovascular Stent Procedures: 70375 Perc transcatheter placement of intracoronary stent(s), with ang PG Care Time/CCT Total # of Minutes Spent Total Time Spent with Patient: Total time spent is greater than 50% in coordin ation of care (as documented) at patient's floor/unit and/or counseling patient:
[2021-04-15] MEDS ORDERED: SODIUM CHLORIDE 0.9% 1000ML 750 ML IV SCH (16:30)
--- NOTE | 2021-04-15 18:23 | Electrocardiogram Report ---
Test Reason : Blood Pressure : / mmHG Vent. Rate : 055 BPM Atrial Rate : 055 BPM P-R Int : 208 ms QRS Dur : 098 ms QT Int : 436 ms P-R-T Axes : 067 027 007 degrees QTc Int : 417 ms Poor data quality, interpretation may be adversely affected Sinus bradycardia Minimal voltage criteria for LVH, may be normal variant Borderline ECG When compared with ECG of 12-NOV-2014 10:30, No significant change was found Confirmed by Lobo Deutsch ([id number]) on 04/15/2021 6:22:35 PM Referred By: REFERRED SELF Confirmed By:Jigar Deutsch
--- NOTE | 2021-04-15 18:27 | Electrocardiogram Report ---
Test Reason : Blood Pressure : / mmHG Vent. Rate : 052 BPM Atrial Rate : 052 BPM P-R Int : 222 ms QRS Dur : 102 ms QT Int : 474 ms P-R-T Axes : 062 021 014 degrees QTc Int : 440 ms Sinus bradycardia with 1st degree A-V block with Premature atrial complexes Minimal voltage criteria for LVH, may be normal variant Borderline ECG When compared with ECG of 14-APR-2021 17:15, (unconfirmed) Premature atrial complexes are now Present Confirmed by Lobo Deutsch ([id number]) on 04/15/2021 6:27:10 PM Referred By: REFERRED SELF Confirmed By:Jigar Deutsch
[2021-04-15] MEDS: cefTRIAXone SODIUM 2,000 MG in DEXTROSE 5% 50 ML IV SCH (21:18)
[2021-04-16] MEDS ORDERED: TICAGRELOR 90 MG TAB PO SCH (06:00)
[2021-04-16 07:15] LABS: Basophils # (auto) 0.01 K/uL (0-0.2); Basophils % (auto) 0.2 %; Eosinophils # (auto) 0.09 K/uL (0-0.5); Eosinophils % (auto) 1.8 %; Hematocrit (blood only) 45.8 % (42-52); Hemoglobin 15.5 g/dL (14.0-18.0); Immature Granulocytes # (auto) 0.02 K/uL (0.00-0.02); Immature Granulocytes % (auto) 0.4 %; Lymphocytes # (auto) 1.47 K/uL (1.2-3.4); Lymphocytes % (auto) 29.8 %; Mean Corpuscular Hemoglobin 32.7 pg (25-34); Mean Corpuscular Hgb Conc 33.8 g/dL (32-36); Mean Corpuscular Volume 96.6 fL (80-100); Mean Platelet Volume 8.7 fL (7.4-10.4); Monocytes # (auto) 0.65 K/uL (0.11-0.59); Monocytes % (auto) 13.2 %; Neutrophils # (auto) 2.69 K/uL (1.4-6.5); Neutrophils % (auto) 54.6 %; Platelet Count 192 K/uL (130-400); RDW Coefficient of Variation 12.5 % (11.5-14.5); RDW Standard Deviation 44.4 fL (36.4-46.3); Red Blood Count 4.74 M/uL (4.7-6.1); White Blood Count 4.93 K/uL (4.8-10.8)
[2021-04-16 07:27] LABS: Partial Thromboplastin Time 25.7 Seconds (21.0-31.0); Prothrombin Time 10.3 Seconds (9.0-12.0)
[2021-04-16 07:43] LABS: Albumin Level 3.5 gm/dl (3.4-5.0); BUN Creatinine Ratio 17.3 (10-20); Calcium 8.7 mg/dl (8.5-10.1); Creatinine Clr Calc Pharmacy 127.7 ml/min; Est GFR (African American) 108.1 ml/min; Est GFR (Non-African American) 93.2 ml/min; Magnesium 2.3 mg/dl (1.8-2.4); Potassium 4.1 mmol/L (3.5-5.1)
[2021-04-16 07:46] LABS: Albumin Globulin Ratio 1.2 (0.9-2); Bilirubin,Total 0.8 mg/dl (0.2-1); Total Protein 6.5 gm/dl (6.4-8.2)
[2021-04-16] MEDS: ASPIRIN 81 MG ECTAB PO SCH (08:16)
[2021-04-16] MEDS ORDERED: ATORVASTATIN 40 MG TAB PO SCH (09:00)
--- NOTE | 2021-04-16 12:42 | Cardiology Progress Note ---
Date of Service April 16, 2021 Assessment & Plan (1) Exertional chest pain: Plan: Patient did appear to have had an acute coronary syndrome involving a very large diagonal branch. He underwent percutaneous intervention yesterday. This likely accounts for his recent symptoms. He does have some evidence of obstructive disease in other distributions, but does not appear to have had symptoms of angina leading up to his more recent event. As such, no intervention was performed on these lesions. He will need to continue aggressive secondary prevention. This will include dual anti-platelet therapy preferably for 1 year. He will continue on his high-dose atorvastatin. I will refer him to cardiac rehab. He should follow-up in our clinic in the next couple of weeks. No vigorous use of the right wrist for 5-7 days. (2) Mitral regurgitation: (3) Aortic root dilation: Admission and Anticipated Discharge Date Admission Date: April 14, 2021 Subjective This morning patient claims to be feeling well. No discomfort at the radial access site. He has been ambulatory around his room without recurrent chest discomfort, dyspnea or dizziness. Review of Systems Review of Systems: Per HPI Physical Exam Physical Exam: Evaluation of the right radial wrist reveals a good radial pulse. Good perfusion of the right hand. No hematoma or ecchymosis. Results & Data ([facility]) Vital Signs (Past 12 Hours) Vital Signs Temp Pulse Pulse Resp BP Pulse Ox 04/16/21 12:31 36.6 C 57 L 9 L 137/70 99 04/16/21 11:10 36.6 C 57 L 9 L 137/70 99 04/16/21 08:05 36.8 C 59 L 18 120/65 99 04/16/21 08:00 47 L 04/16/21 04:00 36.6 C 81 20 110/72 99 Laboratory Results Abnormal Lab Results 04/15/21 04/15/21 04/16/21 14:57 15:22 06:52 WBC 4.93 RBC 4.74 Hgb 15.5 Hct 45.8 MCV 96.6 MCH 32.7 MCHC 33.8 RDW Std Deviation 44.4 RDW Coeff of Henrique 12.5 Plt Count 192 MPV 8.7 Immature Gran % (Auto) 0.4 Neut % (Auto) 54.6 Lymph % (Auto) 29.8 Republic % (Auto) 13.2 Eos % (Auto) 1.8 Baso % (Auto) 0.2 Neut # (Auto) 2.69 Lymph # (Auto) 1.47 Republic # (Auto) 0.65 H Eos # (Auto) 0.09 Baso # (Auto) 0.01 Immature Gran # (Auto) 0.02 PT INR APTT PTT Ratio Activ Coag Time Kaolin 147 H 202 H Sodium Potassium Chloride Carbon Dioxide Anion Gap BUN Creatinine Est Cr Clr Drug Dosing Est GFR ( Amer) Est GFR (Non-Af Amer) BUN/Creatinine Ratio Glucose Calcium Magnesium Total Bilirubin AST ALT Alkaline Phosphatase Total Protein Albumin Globulin Albumin/Globulin Ratio 04/16/21 04/16/21 06:52 06:52 WBC RBC Hgb Hct MCV MCH MCHC RDW Std Deviation RDW Coeff of Henrique Plt Count MPV Immature Gran % (Auto) Neut % (Auto) Lymph % (Auto) Republic % (Auto) Eos % (Auto) Baso % (Auto) Neut # (Auto) Lymph # (Auto) Republic # (Auto) Eos # (Auto) Baso # (Auto) Immature Gran # (Auto) PT 10.3 INR 1.0 APTT 25.7 PTT Ratio 1.0 Activ Coag Time Kaolin Sodium 139 Potassium 4.1 Chloride 107 Carbon Dioxide 28 Anion Gap 4.0 BUN 13 Creatinine 0.77 Est Cr Clr Drug Dosing 127.7 Est GFR ( Amer) 108.1 Est GFR (Non-Af Amer) 93.2 BUN/Creatinine Ratio 17.3 Glucose 94 Calcium 8.7 Magnesium 2.3 Total Bilirubin 0.8 AST 9 L ALT 10 L Alkaline Phosphatase 79 Total Protein 6.5 Albumin 3.5 Globulin 3.0 Albumin/Globulin Ratio 1.2 PG Care Time/CCT Total # of Minutes Spent Total Time Spent with Patient: Total time spent is greater than 50% in coordination of care (as documented) at patient's floor/unit and/or counseling patient: Coding Level of Care Code 69600 Subseq Hosp Care Lvl 2 Diagnoses Exertional chest pain R07.9 Mitral regurgitation I34.0 Aortic root dilation I77.810
--- NOTE | 2021-04-16 17:08 | Electrocardiogram Report ---
Test Reason : Blood Pressure : / mmHG Vent. Rate : 052 BPM Atrial Rate : 052 BPM P-R Int : 226 ms QRS Dur : 100 ms QT Int : 466 ms P-R-T Axes : 062 033 039 degrees QTc Int : 433 ms Sinus bradycardia with 1st degree A-V block Otherwise normal ECG When compared with ECG of 15-APR-2021 06:04, Premature atrial complexes are no longer Present Confirmed by Lobo Deutsch ([id number]) on 04/16/2021 5:08:07 PM Referred By: REFERRED SELF Confirmed By:Jigar Deutsch
--- NOTE | 2021-04-16 18:06 | Discharge Summary ---
Date of Service April 16, 2021 Admission HPI Per Admitting Provider The patient is a 62-year-old male with a past medical history of cervical degenerative disc disease, allergic rhinitis, GERD, dyslipidemia, horseshoe kidney and osteoarthritis of knee. Initially noted the above symptoms in October when going for bike rides, and was out in the cold temperatures have been 20 to 30 F range. He had gradually gotten to that, but on April 02 had recurrence of symptoms while doing physical activity, and has continued to have recurrence of symptoms with less and less physical activity. He also complains of bilateral upper extremity numbness extending into hands, on left greater than right. He is undergone the beginnings of a work-up in the outpatient setting, and is waiting for a call from orthopedic surgery for an appointment. Principal Diagnosis Stable angina with stenting and diagonal artery Discharge Exam The patient appeared well Vital signs as documented. Lungs are clear to auscultation and appear unlabored Cardiac exam, Rhythm is regular.. No murmurs, rubs or gallops. Abdominal exam reveals normal bowel sounds, soft non tender, no masses Extremities are nonedematous and both pedal pulses are normal. Neurologic exam is alert and oriented, no focal loss of strength or sensation Skin is without bruises or rashes Psychologically is without concerns for anxiety or depression. Discharge Data Allergies Allergy/AdvReac Type Severity Reaction Status Date / Time No Known Allergies Allergy Unverified 04/14/21 20:38 Consultations 04/14/21 20:51 ED Decision to Admit Stat 04/15/21 16:20 Consult Cardiac Rehabilitation Routine Procedures Performed Operation Date: 04/15/21 14:00 Actual Procedures p Drug Eluting Stent SGl Vessel - Sen Harkins MD s Cath, Left with Cors and Vent - Sen Deutsch MD s Cineradiography w/Routine Exam - Sen Deutsch MD Ordered Studies 04/15/21 13:36 CL Cath Imgs for PACS use only Urgent Hospital Course (1) Exertional chest pain: Exertional chest pain- Pt had negative troponin x3, had abnormal stress test and taken to slab polisher Successful PCI of proximal first diagonal with single drug-eluting stent (3.0 x 18 mm [place]). Recommendations: Loaded with clopidogrel 600 mg in Library Media Assistant Continue dual-antiplatelet therapy for at least 1 year cardiology is chosen Brilinta plus baby aspirin Atorvastatin 40, and ASCVD risk factor modification Consult cardiac Rehab (2) Degenerative arthritis of cervical spine: Cervical degenerative disc disease/upper extremity dysesthesias- Presently is waiting for return call from orthopedic surgery for follow-up appointment (3) Upper extremity neuropathy: See above (4) Dental infection: Dental infection right lower mandible/failure of outpatient treatment- Hold penicillin VK Ceftriaxone 1 g IV this evening Due for last dose of methylprednisolone 4 mg p.o. tonight from tapering course (5) Dyslipidemia: Check a fasting lipid panel (6) Esophageal reflux: GERD/NSAID induced gastritis- No specific symptoms at this time Will place on aspirin 81mg qam Total Time Total Time Spent Total Time Spent (In Minutes): It required greater than 30 minutes to prepare this patient for discharge Discharge Plan Discharge Items Patient Disposition: Home - Self-Care Reason For Visit: EXERTIONAL CHEST PAIN Discharge Diagnosis: unstable angina, TROY to diagonal coronary artery Activity: Per Instructions section Activity Comment: no intentional exercise until seen by cardiology in follow up Non-emergency contact: Primary Care Provider and Pipe Organ Mechanic Call non-emergency contact if: you have any medication questions and your symptoms worsen Follow-up/Referrals: Katarzyna Dalton PA-C [Physician Lavatory Attendant] - 04/28/21 3:00 pm (Dr. Mir is unavailable. Please follow up with Katarzyna Dalton PA-C on Wednesday04/28/21 at 3:00 pm. Please arrive to the office at 2:45 for your appointment. If you are unable to keep this appointment, please call the office to reschedule at [phone].) Yosi Mir MD [Primary Care Provider] - (Dr. Mir is unavailable.) Diet: Heart Healthy Addtl Attending Provider Instructions: It is very important to take your antiplatelet medications, if there is insurance coverage issues with medicines please have pharmacy call the hospital and have me paged to discuss alternatives. ACTIVITY RECOMMENDATIONS: Excess manipulation of the wrist should be avoided for the next 24-48 hours. * No lifting over 2 pounds (approximately a 1/2 gallon of milk) with the utilized arm for 24 hours. * No strenuous activity such as bowling or tennis for 3 days. * Keep the site of the procedure covered with a bandage for 24 hours. *You may shower the day after the procedure. Do not take a tub bath or submerge the puncture site in water for the next 3 days. *Do not operate any motorized equipment for 3 days. SPECIAL CARE INSTRUCTIONS: The site may be slightly bruised and sore following your procedure. Should any of the following occur, contact the Dr. who performed your procedure. 1. Redness/inflammation, swelling, chills, or fever, or colored drainage at procedure site within 3-7 days after your procedure. 2. Coldness, discoloration, ongoing numbness, severe pain, or swelling. Expect mild tingling of hand and tenderness at the puncture site for up to three days. If this persists beyond three days, or other symptoms develop, notify the Dr. who performed your procedure. BLEEDING: If the procedure site on your wrist begins to bleed, do not panic 1. Place 1 or 2 fingers firmly just slightly above the insertion site to stop the bleeding. You may be able to feel your pulse as you hold pressure. 2. Lift your finger after 5 minutes to see if the bleeding has stopped. 3. Once the bleeding has stopped, gently wipe the wrist area clean with a bandage. * If the bleeding from your wrist does not stop after 10 minutes, or if there is a large amount of bleeding or spurting, call 911 (do not drive yourself to the hospital). SKIN IRRITATION: * You may experience some redness and/or swelling in the area where radiation was administered. If any skin irritation occurs, please contact your family physician. FOLLOW UP VISIT: Keep any scheduled doctor appointments. Pending Studies at Discharge: No Stand-Alone Forms: My [facility], Smoking Cessation Medications and DC Order Prescriptions: New Brilinta 90 mg Tablet 90 mg PO BID Qty: 60 RF: 5 atorvastatin 40 mg Tablet 40 mg PO QAM Qty: 30 RF: 5 aspirin 81 mg Tablet,Delayed Release (Dr/Ec) 81 mg PO QAM Qty: 30 RF: 0 amoxicillin-pot clavulanate [Augmentin] 875-125 mg tablet 1 tab PO BID Qty: 14 RF: 0 Discontinued methylprednisolone [Medrol (Hermes)] 4 mg tablets,dose pack 4 mg PO .DAILY/UD RF: 0 penicillin V potassium 500 mg tablet 500 mg PO Q6H RF: 0 Discharge Orders: Discharge Order (Routine); Ordered 04/16/21 Ordered By: Filiberto River Admission Data Admit Date/Time: 04/14/21 21:40 Attending Provider: Filiberto River Admit Provider: Checo Jones Primary Care Provider: Yosi Mir Other Providers: Checo Jones Other Interventions: Discharge Summary Assessment (RN) Last Done: 04/16/21 12:31 Coding Level of Care Code D/C DAY MANAGEMENT >30 MINS Diagnoses Exertional chest pain R07.9 Degenerative arthritis of cervical spine M47.812 Upper extremity neuropathy G56.90 Dental infection K04.7 Dyslipidemia E78.5 Esophageal reflux K21.9
== END 2021-04-16 13:00 | disposition home or self-care (01) ==
LOC: ED 17:02 → 2S 17:02 → SUATTDRO 21:40 → 2S 23:55

== ENCOUNTER 2022-04-08 05:02 | Observation (INO) ==
--- NOTE | 2022-03-25 11:45 | PAT Medication Instructions ---
Medication Instructions Date of Service March 25, 2022 Home Medications cholecalciferol (vitamin D3) 50 mcg (2,000 unit) capsule (Vitamin D3) 50 mcg PO QAM ibuprofen 200 mg tablet 200 mg PO BID PRN magnesium 1 tab PO QAM turmeric 400 mg capsule 400 mg PO QAM ASK your surgeon for instructions ibuprofen 200 mg tablet 200 mg PO BID PRN STOP taking 2 weeks before surgery (or as soon as possible if surgery is within 2 weeks) turmeric 400 mg capsule 400 mg PO QAM DO NOT take the morning of surgery cholecalciferol (vitamin D3) 50 mcg (2,000 unit) capsule (Vitamin D3) 50 mcg PO QAM magnesium 1 tab PO QAM Other Notes If you have any questions please call us at [phone] or [phone] or [phone] or [phone]
--- NOTE | 2022-03-27 11:35 | Anesthesiology Consultation ---
Date of Service March 27, 2022 Assessment & Plan (1) Encounter for pre-operative examination: - CAD: TROY x1 04/15/21 at [facility]. Cardiology office visit (03/30/22): "He is currently stable and asymptomatic from a cardiovascular standpoint with no anginal symptoms occurring at >4 METS of activity. He has no evidence of CHF or significant valvular abnormality. Recent stress test on 01/07/22 was negative for ischemia at 94% MPHR and 13.4 METS. Given this information, patient is at an acceptable risk to proceed with upcoming surgery without any additional cardiovascular testing or intervention. The importance of remaining on aspirin therapy indefinitely given his prior intracoronary stenting was discussed with him today. It is recommended he resume low dose aspirin daily and remain on the medication throughout the perioperative period." - PCP office visit (03/26/22): "71-year-old male with coronary artery disease status post stent placement with excellent exercise tolerance and a recent stress echocardiogram which was normal in January 2022. The patient has no chest pain or shortness of breath. He has a very active lifestyle. There is no contraindication to his upcoming knee surgery. Plan: I will check his preoperative laboratory studies which are scheduled for tomorrow. This note will serve as his medical clearance for upcoming surgery." - COVID screening: Per assessment on 03/27: No known COVID-19 positive contacts or current COVID-19 related symptoms. Travel screen- return from travel to [facility] in [place] (remote region). No large crowds/gathering. Patient vaccinated. Surgeon arranging preop COVID testing (scheduled 04/03; [place]). Awaiting results. Chart Review Chart Review: Acceptable Risk for Surgery (pending evaluation AM DOS) and Patient seen in Pre Admission Testing Teaching & Discussion Pre-Anesthesia Teaching/Discussion Notes: Instructed NPO after midnight before surgery,except medications with 15 cc of water. Medication instructions provided according to the PAT guidelines. History Surgery Operation Date: 04/08/22 09:20 Proposed Procedures p Left Total Knee Arthroplasty with Weston and Weston Rotating Platform - Myles Canales MD Height/Weight Height: 6 ft 9 in Weight: 105.6 kg Allergies Allergy/AdvReac Type Severity Reaction Status Date / Time No Known Allergies Allergy Verified 03/30/22 14:31 Medications Home Medications Medication Instructions Recorded Confirmed Last Taken cholecalciferol (vitamin D3) 50 50 mcg PO QAM 03/25/22 03/30/22 Unknown mcg (2,000 unit) capsule (Vitamin D3) ibuprofen 200 mg tablet 200 mg PO BID PRN 03/25/22 03/30/22 Unknown magnesium 1 tab PO QAM 03/25/22 03/30/22 Unknown turmeric 400 mg capsule 400 mg PO QAM 03/25/22 03/30/22 Unknown ascorbic acid (vitamin C) 500 mg mg PO 03/26/22 03/30/22 Unknown capsule vitamin B complex (B 1 tab PO DAILY 03/26/22 03/30/22 Unknown Complex-Vitamin B12) zinc sulfate 25 mg zinc (110 mg) 25 mg PO DAILY 03/26/22 03/30/22 Unknown tablet (Orazinc) aspirin 81 mg tablet,delayed 81 mg PO DAILY #30 tab 03/30/22 03/30/22 Unknown release Past Medical History Medical History (Updated 03/30/22 @ 15:48 by Zachary Ernandez PA-C) CAD (coronary artery disease) TROY 04/15/21 at [facility] History of COVID-19 Dx 09/2021 - cold like symptoms, fatigue at the time > resolved Horseshoe kidney Renal function WNL on most recent available labs 04/2021 Normal stress echocardiogram NSAID induced gastritis Tubular adenoma of colon Exercise / Class Metabolic Activity II 4-5 Yardwork/Stairs/Walk up hill (one FS (no CP, no SOB)) Past Family History Family History Other Leukemia Past Surgical History Surgical History H/O colonoscopy History of arthroscopy of left shoulder History of arthroscopy of right shoulder Hx of cardiac catheterization TROY 04/15/21 at [facility] S/P arthroscopy of knee Status post tonsillectomy and adenoidectomy Past Anesthesia History No Hx of Anesthesia Complications and No Family Hx of Anesthesia Complications History of PONV No Hx of PONV and No Hx of Motion Sickness Social History Smoking Status: Never smoker Do You Dip or Chew Tobacco: No Hx Alcohol Use: No Alcohol type: beer and wine alcohol intake frequency: holidays/special occasions only Hx Substance Use: No substance use type: does not use Review of Systems Patient denies chest pain, shortness of breath, dyspnea on exertion, fever, chills, cough, wheezing, palpitations. Physical Exam Vital Signs VITALS BP 144/80 P 58 TEMP 97.9 SP02 97%RA RESP 18 PHYSICAL Full cervical extension range of motion. Full TMJ range of motion. TMD 3.5 finger breaths Mallampati Score 1 Dentition: intact, + crown Lungs: clear throughout to auscultation Cardiac: regular rate and rhythm, no murmurs noted Spine: normal Carotid arteries: negative bruit Extremities: no edema Lab Results Anesthesia Preop Results Results Anesthesia Widget: WBC 4.81 K/uL (4.8-10.8) 03/27/22 Hgb 14.0 g/dL (14.0-18.0) 03/27/22 Hct 41.1 % (42-52) L 03/27/22 Plt 213 K/uL (130-400) 03/27/22 Na 139 mmol/L (136-145) 03/27/22 K 4.2 mmol/L (3.5-5.1) 03/27/22 Cl 107 mmol/L (98-107) 03/27/22 CO2 27 mmol/L (21-32) 03/27/22 BUN 21 mg/dl (6-23) 03/27/22 Creat 0.83 mg/dl (0.6-1.4) 03/27/22 Glucose Level 102 mg/dl (70-99(Fasting)) H 03/27/22 PT 10.5 Seconds (9.0-12.0) 03/27/22 PTT 25.6 Seconds (21.0-31.0) 03/27/22 INR 1.0 (0.9-1.1) 03/27/22 Urine Color Yellow 03/27/22 Urine Appearance Clear (Clear) 03/27/22 Urine pH 6.0 (4.5-7.5) 03/27/22 Urine Specific [place] 1.017 (1.000-1.030) 03/27/22 Urine Protein Negative (Negative) 03/27/22 Urine Glucose (UA) Negative (Negative) 03/27/22 Urine Ketones Negative (Negative) 03/27/22 Urine Blood Negative (Negative) 03/27/22 Urine Nitrite Negative (Negative) 03/27/22 Urine Bilirubin Negative (Negative) 03/27/22 Urine Urobilinogen Negative (Negative) 03/27/22 Urine Leukocyte Esterase Negative (Negative) 03/27/22 Blood Type O Positive 03/27/22 Antibody Screen NEGATIVE 03/27/22 Testing Electrocardiogram Date: 12/22/21 SB at 58bpm. Minimal voltage criteria for LVH, may be normal variant (Sokolow- Magdaleno). Chest X-Ray Date: 04/14/21 FINDINGS: Lung volumes are normal. Lungs are clear. There is no pneumothorax or pleural effusion. Cardiac size is normal. Mediastinal contours are normal. There is no evidence for pulmonary edema. IMPRESSION: No acute cardiopulmonary findings. Stress Test Date: 01/07/22 Type: exercise Negative exercise stress echo/ecg for ischemia at 94% MPHR. No exercise induced chest pain. 13.4 METS. LVEF 60%. Mild MR. Mild aortic root dilation. Borderline dilated ascending aorta. Mild cLVH. Cardiac Catheterization Date: 04/15/21 Acute coronary syndrome involving the first diagonal branch Moderate disease involving the LAD and obstructive disease involving the mid PDA Normal intracardiac pressures No evidence of aortic stenosis Decision to proceed with PCI. Successful PCI of proximal first diagonal with single drug-eluting stent (3.0 x 18 mm [place]). Cervical Spine Date: 04/09/21 FINDINGS: The cervical spine is visualized from C1 through the superior endplate of T1. There is no fracture. No subluxation. Intervertebral disc space narrowing with multiple anterior and posterior osteophytes are seen within mid to lower cervical region. Minimal neural foraminal narrowing is seen within upper cervical region on the left and right oblique views. Evaluation of the lateral view is slightly limited due to motion artifact. Prevertebral soft tissues is intact. IMPRESSION: No fracture or subluxation within the cervical spine. Degenerative changes slightly worsened since prior study as detailed above.
--- NOTE | 2022-03-30 15:49 | History & Physical Report ---
Date of Service March 30, 2022 Assessment & Plan (1) Left knee DJD: Plan: Postoperative prescriptions for Percocet and Coumadin will be provided at discharge from the hospital. Anticipate discharge to home with home health services. He has already met with PAT and his lab work, EKG, and chest x-ray have been completed. He has already seen his PCP for medical clearance. The patient does have a walker already. PDMP was checked and there are no concerning findings. He is aware of the COVID-19 risks associated with surgery. He is currently asymptomatic of any COVID-19 symptoms. He will obtain nasal swab testing 4 days prior to surgery. He does intend to travel to his camp a few weeks postoperatively. He understands that this will need to be after his mike are removed. Postop appointment has been made for 04/23 at 1:30 p.m. History of Present Illness Chief Complaint: Left knee pain Primary Care Provider: Yosi Mir MD This 71-year-old male presents for his preoperative history and physical. He is scheduled to undergo a left knee total knee arthroplasty on 04/08/22. The patient has had a longstanding history of left knee pain. It has been ongoing for years. He recently aggravated his knee after riding his bike in [place] in December. He did see an orthopedist there. The patient has a distant history of left knee arthroscopy. He notes some loss of motion. It is affecting his ADLs. No numbness or tingling. There is daily pain that is worse with weightbearing. Preoperative imaging has been obtained. He elects to proceed with surgical intervention in the hopes of improving his function. He is quite active and does a lot of outdoor activity. Allergies Allergy/AdvReac Type Severity Reaction Status Date / Time No Known Allergies Allergy Verified 03/30/22 14:31 Home Medications Medication Instructions Recorded Confirmed Type cholecalciferol (vitamin D3) 50 50 mcg PO QAM 03/25/22 03/30/22 History mcg (2,000 unit) capsule (Vitamin D3) ibuprofen 200 mg tablet 200 mg PO BID PRN 03/25/22 03/30/22 History magnesium 1 tab PO QAM 03/25/22 03/30/22 History turmeric 400 mg capsule 400 mg PO QAM 03/25/22 03/30/22 History ascorbic acid (vitamin C) 500 mg mg PO 03/26/22 03/30/22 History capsule vitamin B complex (B 1 tab PO DAILY 03/26/22 03/30/22 History Complex-Vitamin B12) zinc sulfate 25 mg zinc (110 mg) 25 mg PO DAILY 03/26/22 03/30/22 History tablet (Orazinc) aspirin 81 mg tablet,delayed 81 mg PO DAILY #30 tab 03/30/22 03/30/22 Rx release Past Med/Surg History Medical History (Updated 03/30/22 @ 15:48 by Zachary Ernandez PA-C) CAD (coronary artery disease) [facility] 04/15/21 at [facility] History of COVID-19 Dx 09/2021 - cold like symptoms, fatigue at the time > resolved Horseshoe kidney Renal function WNL on most recent available labs 04/2021 Normal stress echocardiogram NSAID induced gastritis Tubular adenoma of colon Surgical History H/O colonoscopy History of arthroscopy of left shoulder History of arthroscopy of right shoulder Hx of cardiac catheterization TROY 04/15/21 at [facility] S/P arthroscopy of knee Status post tonsillectomy and adenoidectomy Family History Other Leukemia Social History (Updated 03/30/22 @ 15:45 by Zachary Ernandez PA-C) Smoking Status: Never smoker Second Hand Exposure: No; Hx Alcohol Use: Yes Alcohol type: beer and wine Hx Substance Use: No Preferred Language: Eritrean Communication Ability: Effective Hearing Ability: Normal Account Development Specialist Required: No Beliefs That Will Affect Care: None marital status: Current Living Situation: Spouse current occupational status: retired Feels Safe at Home: Yes Assistive Devices: Glasses Review of Systems Review of Systems: All systems reviewed & are unremarkable except as noted in HPI & below A total of 10 systems were reviewed. Physical Exam Physical Exam: Vitals: Height 206 cm, weight 106 kg, BMI 25. Temperature 36.5, BP 140/68, pulse 60, O2 sat 97% on room air. General: Well-developed, well-nourished, elderly white male in no acute distress. Sitting in a chair. Alert and oriented. Very tall individual. Looks younger than his stated age. Skin: Warm and dry with good turgor. No rashes or lesions. No ecchymosis or erythema. No intraarticular effusion. HEENT: Normocephalic, atraumatic. Eyes: PERRLA, EOMI. Nares and oropharynx exams deferred due to COVID precautions. Heart: RRR. No MGR. Lungs: Clear to auscultation bilaterally. No crackles, rhonchi or wheezing. Good air movement. Abdomen: Bowel sounds present x4, soft, nontender. No organomegaly. No masses. Musculoskeletal: Left knee has obvious arthritic changes. No intraarticular effusion. He lacks about 10 degrees of terminal extension. Flexion to greater than 120 degrees. Strength is 5/5 with excellent quad tone. Stable collateral ligaments. Varus deformity. He has focal pain with palpation over the medial and lateral joint lines, with medial being worst. Crepitus is palpable with motion. No peripatellar discomfort. No defect in the patellar tendon or quadriceps tendon. He is able to perform a straight leg raise. He ambulates with a slightly antalgic gait. Neurologic: Gross sensation is intact across the lower extremities by soft touch. Peripheral pulses are 2+. Results & Data Results & Data ([facility]) Diagnostic Findings Radiographic imaging previously obtained in [place] shows significant arthritic change of the medial as well as patellofemoral compartments. He is essentially [id number] in the medial compartment. Periarticular osteophytes, subchondral sclerosis, and joint space narrowing are all present. Code Status & VTE Plan VTE Prophylaxis Plan VTE Prophylaxis will be ordered: Yes
[2022-04-08] MEDS ORDERED: ceFAZolin 2000MG 2,000 MG/15 ML SYR IV SCH (06:00)
[2022-04-08] MEDS ORDERED: ROPIVACAINE 0.5% HCL/PF 150 MG, BUPIVACAINE 0.75% MPF 20 ML, EPINEPHrine 0.15 MG, Ketor... INFIL SCH (06:00)
[2022-04-08] MEDS ORDERED: TRANEXAMIC ACID 1,000 MG x 1 **For Topical Use TOP SCH (06:00)
[2022-04-08] MEDS ORDERED: LR 60ML/HR IV SCH (06:00)
[2022-04-08] MEDS ORDERED: LR 500ML BOLUS, THEN 15ML/HR IV SCH (06:00)
--- NOTE | 2022-04-08 06:19 | History & Physical Bridge Note ---
Date of Service April 08, 2022 History & Physical Bridge Note I have examined the patient, reviewed the History & Physical and in the interval since the performance of the History & Physical I have noted the following changes of clinical significance: consent obtained/site verified/covid screen negative.no changes noted
[2022-04-08] MEDS ORDERED: ROPIVACAINE 0.5% 5 MG/ML 30 ML VIAL ONE (06:23)
[2022-04-08] MEDS ORDERED: BUPIVACAINE 0.5 % 5 MG/1 ML PF 10ML VIAL ONE (06:23)
[2022-04-08] MEDS ORDERED: PROPOFOL IV EMULSION 10 MG/ML 20 ML VIAL IV ONE ×3 (06:29→08:49)
[2022-04-08] MEDS ORDERED: MIDAZOLAM HCL 1 MG/ML 2ML VIAL ONE (06:32)
[2022-04-08] MEDS ORDERED: fentaNYL citrate 100 MCG/2 ML VIAL ONE (06:32)
[2022-04-08] MEDS ORDERED: LIDOCAINE 2% 2 ML VIAL/AMP(20MG/ML) INFIL ONE (06:34)
[2022-04-08] MEDS ORDERED: ePHEDrine sulfate 50 MG/ML AMP IV PRN (07:17)
[2022-04-08] MEDS ORDERED: ATROPINE SULFATE 0.1 MG/ML 10ML SYR IV PRN (07:17)
[2022-04-08] MEDS ORDERED: KETOROLAC 30 MG/ML VIAL IV PRN (07:17)
[2022-04-08] MEDS ORDERED: ONDANSETRON INJ 2 MG/ML 2 ML VIAL IV PRN ×2 (07:17→10:16)
[2022-04-08] MEDS ORDERED: HYDROmorphone INJ 1 MG/ML SYRINGE IV PRN (07:17)
[2022-04-08] MEDS ORDERED: KETAMINE 50 MG/5 ML SYRINGE ONE (07:30)
[2022-04-08] MEDS ORDERED: ONDANSETRON INJ 2 MG/ML 2 ML VIAL ONE (08:26)
[2022-04-08] MEDS ORDERED: ceFAZolin 330 MG/ML 1 GM VIAL ONE (08:37)
--- NOTE | 2022-04-08 09:03 | Post Operative Brief Note ---
Immediate Post Op Note v1 Date of Surgery April 08, 2022 Pre & Post Diagnosis Operation Date: 04/08/22 07:00 Pre-Op Diagnosis: Dengenerative Joint Disease Knee Left Post-Op Diagnosis: Dengenerative Joint Disease Knee Left I identified the patient and participated in the time-out.: Yes Procedure Operation Date: 04/08/22 07:00 Actual Procedures p Left Total Knee Arthroplasty with Weston and Weston Rotating Platform(Left) - Myles Canales MD Surgeon Myles Canales MD Carburizing Furnace Operator Jacqui/Oma Estimated Blood Loss 50 Findings Consistent with Post-Op Diagnosis
--- NOTE | 2022-04-08 09:15 | Operative Report ---
Post Operative Report Pre & Post Diagnosis Operation Date: 04/08/22 07:00 Pre-Op Diagnosis: Dengenerative Joint Disease Knee Left Post-Op Diagnosis: Dengenerative Joint Disease Knee Left I identified the patient and participated in the time-out.: Yes Procedure Operation Date: 04/08/22 07:00 Actual Procedures p Left Total Knee Arthroplasty with Weston and Magin Rotating Platform(Left) - Myles Canales MD Surgeon Gin Canales MD Health Sciences Program Coordinator Jacqui/Oma Estimated Blood Loss 50 Findings Consistent with Post-Op Diagnosis consistent with post op diagnosis Specimens No specimens Description of Procedure I participated in prepping dressing and assisted Dr. Canales durign the procedure. Please see Dr. Canales note. I attest to the content of the Intraoperative Record and any orders documented therein. Any exceptions are noted below.
--- NOTE | 2022-04-08 09:17 | Operative Report ---
Post Operative Report Pre & Post Diagnosis Operation Date: 04/08/22 07:00 Pre-Op Diagnosis: Dengenerative Joint Disease Knee Left Post-Op Diagnosis: Dengenerative Joint Disease Knee Left I identified the patient and participated in the time-out.: Yes Procedure Operation Date: 04/08/22 07:00 Actual Procedures p Left Total Knee Arthroplasty with Weston and Weston Rotating Platform(Left) - Myles Canales MD Surgeon FLORENTIN Canales MD Motor Vehicle Field Representative Jacqui/Oma Estimated Blood Loss 50 Findings Consistent with Post-Op Diagnosis see operative report Specimens see operative report Drains none Complications none Disposition Accompanied Patient To Recovery: Yes Indications This 71-year-old male presented to the office with complaints of persisting left knee pain. He had tried conservative care measures without improvement. He elected to proceed with surgical intervention after being educated about potential risks and outcomes. Preoperative imaging was obtained. Description of Procedure Patient was administered a spinal anesthetic and then taken to the operating room where he was given sedation. He was prepped and draped in the usual sterile fashion. Please see Dr. Canales's operative report for specifics of the procedure. I was present for the entire case from initial patient positioning through final wound closure. Assistance was provided in tissue retraction, hemostasis, trial implant placement, final implant placement, and final wound closure. Patient was taken to the recovery room in satisfactory condition. I attest to the content of the Intraoperative Record and any orders documented therein. Any exceptions are noted below.
--- NOTE | 2022-04-08 09:26 | Operative Report (OR) ---
DATE OF PROCEDURE: 04/08/2022. SURGEON: Myles Canales MD. COOK SPECIALTY FOREIGN FOOD: Alessandro Osman MD. SECOND COOK SPECIALTY FOREIGN FOOD: Zachary Ernandez PA-C. PREOPERATIVE DIAGNOSES: Osteoarthritis with varus flexion deformity, left knee. POSTOPERATIVE DIAGNOSES: Osteoarthritis with varus flexion deformity, left knee. OPERATION PERFORMED: Left total knee replacement cemented. SUMMARY OF IMPLANTS: A size 5 left femur posterior cruciate substituting size 5 mobile bearing tray, size 41 patella 5 x 10 mm posterior cruciate substituting insert, J and J rotating platform all impl ants. Two bags of Palacos G cement. ESTIMATED BLOOD LOSS: 50 mL. CRYSTALLOID: Per anesthesia. PATHOLOGY: Pending on bone. DVT PROPHYLAXIS: Per protocol. PERIOPERATIVE SITUATION: Medically cleared male with an intractable knee pain with significant varus flexion deformity, end-stage tricompartmental osteoarthritis of both knees. He wants to proceed wit h a left first. He understands the risks and consequences. Consent obtained. DESCRIPTION OF PROCEDURE: After the patient was appropriately identified, site verified, consent amalia ified; antibiotics were confirmed as being given. The left lower extremity was prepped and draped in the usual routine fashion. Tourniquet was inflated to 275 mmHg after exsanguination of the limb wit h a rubber Esmarch bandage for a total of 66 minutes. Midline exposure was utilized. Parapatellar a rthrotomy performed. Extensive osteophytes and releases were required to get his knee to straighten. Once this was all done, the distal femur was resected 14 mm, proximal tibia 4 mm, the extension gap was excellent. Femur was sized between a 6 and a 5, was measured 6, cut 5. There was no notching. Tibia was cut 4 mm and were significant osteophytes medially and posteriorly. These were resected. The implant was between a 5 and a 6 and will be kept with a 5. The flexion gap was excellent. The extension gap was excellent. Box cut was then made on the femur for a size 5 and the size 5 trial fi t well. The tibia was then broached and reamed to a size 5 and that fit well with a 10 spacer, allow ed full range of motion from 0-120 degrees with good stability in mid range as well. Patella tracked well. There were significant osteophytes, the patella was resected. Leaving about 16 mm. His over all thickness was close to 30. The size 41 trial button was then seated and tracked well. All impla nts were then removed. The Orthomix injection was then placed all around the knee and then the TXA p laced for 4 minutes and the wound irrigated with Pulsavac Betadine and Pulsavac, and then the permane nt cemented into position tibia, femur, and patella in that order. At 12 minutes, the tourniquet was deflated. Minor bleeding points controlled with electrocautery. At 14 minutes, the knee was flexed , irrigated. No major cement removal was required. The permanent liner was seated and then the knee reduced and closed at 40 degrees of flexion using #2 Vicryl, 2-0 Vicryl and stainless steel clips. Appropriate dressing applied. The patient was transferred to recovery room in satisfactory condition , having tolerated the procedure well. Again, implants used were a DePuy J and J rotating platform s ize 5, 41 patella, posterior cruciate substituting, 2 bags of Palacos G cement. Job ID: [id number]
--- NOTE | 2022-04-08 09:39 | Discharge Summary (DS) ---
DATE OF ADMISSION: 04/08/2022. POTENTIAL DISCHARGE: 04/09/2022. CHIEF COMPLAINT: Left knee pain. HISTORY OF PRESENT ILLNESS: The patient was admitted for elective left total knee replacement. He w as cleared medically secondary to his coronary disease. At this point in time, is deemed appropriate risk by his tuckpointer and his medical provider for general medicine. He has significant pain, has been followed for decades. He has significant varus flexion deformity, bilateral knees. The left is worse than the right, clinically, but roughly the same by x-ray. ALLERGIES: None. PREADMISSION MEDICATIONS: Vitamins, p.r.n. ibuprofen, turmeric, baby aspirin 81 mg. PAST MEDICAL HISTORY: Remarkable for coronary artery disease with a stent on 04/15/2021, history of COVID-19, horseshoe kidney with normal renal function, normal stress echocardiogram, NSAID-induced ga stric irritation, tubular adenoma of the colon. PAST SURGICAL HISTORY: Remarkable for colonoscopy, shoulder surgeries, cardiac catheterization with stent, arthroscopic surgery of the knee, tonsillectomy and adenoidectomy. FAMILY HISTORY: Remarkable for leukemia. SOCIAL HISTORY: Does not smoke, avid athlete. Social alcohol. , lives with spouse. Retired . Feels safe at home. Wears glasses. REVIEW OF SYSTEMS: Reveals no chest pain, shortness of breath, fever, chills, nausea, vomiting or he adache. ASSESSMENT: Postop status post left total knee. Continue with postoperative care pathway. Discharg e home tomorrow if does well with PT/OT. Discharge on Coumadin, keep INR 1.8-2.2. He can continue h is baby aspirin as well. Job ID: [id number]
--- NOTE | 2022-04-08 09:43 | XRay Report ---
TWO VIEWS RIGHT KNEE CLINICAL HISTORY: Postoperative examination. FINDINGS: AP and crosstable lateral portable views of the right knee are obtained. A right knee arthr oplasty is in near anatomic alignment. There has been undersurface remodeling of the patella. No acut e fracture is seen. There are expected postoperative changes around the knee including skin clips, so ft tissue edema, and subcutaneous gas. IMPRESSION: Expected postoperative changes status post right knee arthroplasty. No acute fracture is seen. ACT 112: Negative or not required by law. Electronically signed by: Steve Cid M.D. 04/08/2022 9:42 AM
--- NOTE | 2022-04-08 10:03 | Anesthesiology Progress Note ---
Date of Service April 08, 2022 Anesthesia Post Procedure Vital Signs Vital Signs: Temp Pulse Pulse Resp BP Pulse Ox 04/08/22 09:40 36.2 C L 41 L 12 136/82 99 04/08/22 09:30 40 L 13 108/67 100 04/08/22 09:20 44 L 12 118/63 97 04/08/22 09:14 36.1 C L 49 L 17 138/100 95 04/08/22 05:31 36.8 C 51 L 20 156/96 H 99 Transfer of Care Handoff Completed per policy Notes Mental Status: alert / awake / arousable Patient Amnestic to Procedure: Yes Nausea / Vomiting: adequately controlled Pain: adequately controlled Airway Patency, RR, SpO2: stable & adequate BP & HR: stable & adequate Hydration State: stable & adequate Anesthetic Complications: no major complications apparent
[2022-04-08] MEDS ORDERED: TAMSULOSIN HCL 0.4 MG CAP PO PRN (10:16)
[2022-04-08] MEDS ORDERED: diphenhydrAMINE 50 MG/ML VIAL IV PRN (10:16)
[2022-04-08] MEDS ORDERED: bisacodyL 10 MG SUPP PR PRN (10:16)
[2022-04-08] MEDS ORDERED: METOCLOPRAMIDE HCL INJ 5 MG/ML 2 ML VIAL IV PRN (10:16)
[2022-04-08] MEDS ORDERED: MAGNESIUM HYDROXIDE SUSP 30 ML UDC PO PRN (10:16)
[2022-04-08] MEDS ORDERED: ALUMINUM/MAGNESIUM SUSP 30 ML UDC PO PRN (10:16)
[2022-04-08] MEDS ORDERED: NALOXONE HCL 0.4 MG/1 ML VIAL/CARP IV PRN (10:16)
[2022-04-08] MEDS ORDERED: HYDROmorphone INJ 0.5 MG/0.5 ML SYR IV PRN (10:16)
[2022-04-08] MEDS ORDERED: SODIUM CHLORIDE 0.9% 1000ML 1,000 ML IV SCH (10:16)
[2022-04-08] MEDS: KETOROLAC TROMETHAMINE 15 MG/ML VIAL IV SCH ×3 (11:59→23:28)
[2022-04-08] MEDS: ACETAMINOPHEN 500 MG TAB PO SCH ×2 (13:37→21:03)
[2022-04-08] MEDS: ORTHO WARFARIN NOMOGRAM SCH (14:07)
[2022-04-08] MEDS: ceFAZolin 2000MG 2,000 MG/15 ML SYR IV SCH ×2 (15:42→23:27)
[2022-04-08] MEDS ORDERED: WARFARIN SOD 5 MG TAB PO ONE (16:00)
[2022-04-08] MEDS: ASCORBIC ACID 500 MG TAB PO SCH (17:31)
[2022-04-08] MEDS: FERROUS GLUCONATE 324 MG TAB PO SCH (17:31)
[2022-04-08] MEDS ORDERED: SODIUM CHLORIDE 0.9% 1000ML 500 ML IV ONE (18:54)
[2022-04-08] MEDS ORDERED: SENNA 8.6 MG TAB PO SCH (21:00)
[2022-04-08] MEDS: DOCUSATE SODIUM 100 MG CAP PO SCH (21:03)
[2022-04-08] MEDS: oxyCODONE HCL IR 5 MG TAB (IMMEDIATE RELEASE) PO PRN (23:26)
[2022-04-09] MEDS: ACETAMINOPHEN 500 MG TAB PO SCH (05:25)
[2022-04-09] MEDS: KETOROLAC TROMETHAMINE 15 MG/ML VIAL IV SCH (05:26)
[2022-04-09] MEDS: oxyCODONE HCL IR 5 MG TAB (IMMEDIATE RELEASE) PO PRN (05:34)
[2022-04-09 06:08] LABS: Hematocrit (blood only) 31.8 % (40.1-51.0); Hemoglobin 10.9 g/dl (14.0-18.0); Mean Corpuscular Hemoglobin 32.6 pg (25.0-34.0); Mean Corpuscular Hgb Conc 34.3 g/dL (32.0-36.0); Mean Corpuscular Volume 95.2 fL (80.0-100.0); Mean Platelet Volume 8.8 fL (9.4-12.4); Platelet Count 148 K/uL (130-400); RDW Coefficient of Variation 12.4 % (11.5-14.5); RDW Standard Deviation 42.5 fL (36.4-46.3); Red Blood Count 3.34 M/uL (4.63-6.08); White Blood Count 9.93 K/ul (4.8-10.8)
[2022-04-09 06:24] LABS: INR 1.1 (0.9-1.1); Prothrombin Time 11.2 Seconds (9.0-12.0)
[2022-04-09 06:33] LABS: BUN Creatinine Ratio 25.6 (10-20); Calcium 8.2 mg/dl (8.5-10.1); Creatinine Clr Calc Pharmacy 118.2 ml/min; Est GFR (African American) 104.6 ml/min; Est GFR (Non-African American) 90.2 ml/min; Potassium 4.1 mmol/L (3.5-5.1)
--- NOTE | 2022-04-09 07:58 | Progress Notes ---
SUBJECTIVE: Postop check status post left total knee replacement. The patient is sitting up on bed comfortably. Denies any chest pain, shortness of breath, fever, chills, nausea, vomiting or headache . OBJECTIVE: Vital signs are stable. He is afebrile. There was some concern that he is hypotensive, but he is not tachycardic. He is not symptomatic and his blood pressure is actually in the 90 range or more. When it is checked manually, it is in the 110 range. Obviously, there is a problem with th e machine recognizing his blood pressure. LABORATORY DATA: His hematocrit is stable in the 30s. His white count is relatively normal. His el ectrolytes are good. His INR is 11.2. ASSESSMENT AND PLAN: Doing well, status post left total knee replacement, physical therapy, occupati onal therapy today and discharge. Wound dressing by PA later today. Coumadin dose per nomogram. Tiffany ordoeñz on 4 mg. Job ID: [id number]
[2022-04-09] MEDS ORDERED: dexAMETHasone 10 MG in SYRINGE 0 ML IV SCH (08:00)
[2022-04-09] MEDS: DOCUSATE SODIUM 100 MG CAP PO SCH (08:20)
[2022-04-09] MEDS: FERROUS GLUCONATE 324 MG TAB PO SCH (08:20)
[2022-04-09] MEDS: ASCORBIC ACID 500 MG TAB PO SCH (08:20)
--- NOTE | 2022-04-09 08:32 | Orthopedic Progress Note ---
Date of Service April 09, 2022 Assessment & Plan (1) S/P total knee replacement using cement: Plan: Patient's dressings were changed this morning by me. JOHNNY hose was applied. He will leave these in place until Wednesday and then can change the dressings as needed for soiling. He will be having home health for the next 2 weeks. He is aware of his max flexion of 90 degrees. He was cautioned about doing too much activity too soon. Use the knee immobilizer when out of bed today and tomorrow. Discontinue its use on Wednesday. Use the walker for ambulation support. He will receive his Coumadin dosing today prior to departure. Take 4mg daily and have his blood checked on Wednesday. Call the office with any other concerns. Follow-up in the office in 2 weeks as scheduled on the . Admission and Anticipated Discharge Date Admission Date: April 08, 2022 Subjective Patient is seen in his room this morning. He states he feels fine now. He was dizzy last night and earlier today. He was found to have hypotension. He did receive a 500 cc bolus of normal sterile saline last evening. He ate a good breakfast this morning. No other complaints at this point. He has been out of bed and has been doing his exercises. He feels ready for discharge to home. Review of Systems Review of Systems: Unchanged from yesterday. Physical Exam Physical Exam: General: Well-developed, well-nourished, elderly white male, in no acute distress. Sitting in bed. Alert and oriented. Conversive. Skin: Warm and dry with good turgor. No rashes. No ecchymosis. Patient's surgical dressings are in place on the left knee. Upon removal, there is scant dried drainage on the inner dressings. There is a moderate intra-articular effusion. [place] are intact. Wound edges well approximated. No erythema or warmth. Musculoskeletal: Patient is able to do a straight leg raise. He is able to set his quad. Intact motor function of the knee and ankle. He has full terminal extension. Flexion to greater than 60 degrees. Neurologic: Gross sensation is intact across the left leg by soft touch. Peripheral pulses are 2+. Results & Data ([facility]) Vital Signs (Past 12 Hours) Vital Signs Temp Pulse Resp BP Pulse Ox 04/09/22 06:31 37.1 C 63 18 88/46 L 98 04/09/22 03:36 36.9 C 54 L 18 113/63 99 04/09/22 00:10 116/68 04/08/22 23:09 37.0 C 60 18 95/45 L 96 Laboratory Results Labs this morning show WBCs of 9.93. H&H of 10.9 and 31.8. INR is 1.1. His PT is 11.2. PRP is unremarkable. Glucose was 109 this morning.
[2022-04-09] MEDS: ORTHO WARFARIN NOMOGRAM SCH (08:34)
[2022-04-09] MEDS ORDERED: WARFARIN SOD 5 MG TAB PO ONE (08:35)
[2022-04-09] MEDS ORDERED: ASPIRIN 81 MG ECTAB PO SCH (09:00)
[2022-04-09] MEDS ORDERED: MULTIVITAMIN TAB PO SCH (09:00)
== END 2022-04-09 12:03 | disposition home health service (06) ==
LOC: 3E 05:02 → ASU 05:02